=== PATIENT | female | born 1960 | race Caucasian/White ===

== ENCOUNTER 2023-01-09 14:35 | Outpatient (CLI) | payer OTHER, SELFPAY ==
--- NOTE | 2023-01-09 15:00 | CRLHL7_ITS ---
For Patients: As a result of the Cures Act, medical imaging exams and procedure reports are released immediately into your electronic medical record. You may view this report before your referring provider. If you have questions, please contact your health care provider. DXA BONE MINERAL DENSITY STUDY, 01/09/2023 Reason for exam: Screening for osteoporosis. Current height (inches): 67.0 Weight (lbs.): 200.0 Menopause age: 51 Ethnicity: White 1. Have you had a previous hip or vertebral fracture? No. 2. Have you had any fractures during your adult life which did not result from significant trauma (e.g., auto accident)? No. 3. Did either of your parents have a hip fracture? No. 4. Do you smoke? No. 5. Have you ever taken Glucocorticoids? No. 6. Do you have rheumatoid arthritis? No. 7. Do you have secondary osteoporosis? No. 8. Do you drink 3 or more alcoholic drinks per day? No. 9. Are you being treated for osteoporosis? No. 10. Have you ever taken any of the following medications: Actonel, Evista, Fosamax, Miacalcin, Reclast, Boniva, Forteo, HRT (i.e., estrogen/hormone therapy), Protelos, Prolia, Vitamin D, Calcium, other ??? please specify. ANSWER: Yes; vitamin D, calcium. 11. Do you have any of the following medical conditions: Anorexia or bulimia, asthma or emphysema, end stage renal disease, hyperparathyroidism, any seizure disorders, cancer, inflammatory bowel diseases, hysterectomy, other ??? please specify. ANSWER: Yes; hysterectomy. 12. What was your maximum height (inches)? 68. 13. Do you perform weightbearing exercise regularly? No. 14. Do you regularly consume dairy products? No. 15. Do you drink caffeinated beverages? Yes. 16. At what age did your period start? 13. 17. Are you premenopausal? No. 18. How many full-term pregnancies have you had? 3. 19. Have you ever missed your period for more than 6 months in a row (not including or menopause)? No. TECHNIQUE: Bone mineral density study was performed using the [employer]. FINDINGS: The results of the study expressed as bone mineral density (BMD) are as follows: Lumbar Spine L1 to L3 BMD: 0.974 g/cm2. T-score: -0.4. Z-score: 1.1. Neck Left: BMD: 0.748 g/cm2. T-score: -0.9. Z-score: 0.4. Right: BMD: 0.748 g/cm2. T-score: -0.9. Z-score: 0.4. Total Left: BMD: 0.980 g/cm2. T-score: 0.3. Z-score: 1.3. Right: BMD: 0.966 g/cm2. T-score: 0.2. Z-score: 1.2. IMPRESSION: Normal bone density. AALN YOUSSEF M.D. Diagnostic Radiologist [email or web address] Transcribed: 11:[address]/Dictated by: Alan Youssef MD @ 01/10/2023 8:25:00 AM (Electronically Signed)
== END 2023-01-09 14:36 | disposition home or self-care (01) ==
PROVIDERS: PCP Family Medicine; Visit Provider Family Medicine
DX: Z13.820 Encounter for screening for osteoporosis (principal)
CPT/HCPCS: 77080

== ENCOUNTER 2024-10-09 12:42 | Outpatient (CLI) | payer OTHER, SELFPAY ==
--- OUTSIDE RECORDS SUMMARY | 2023-12-30 11:29 | XMS_ITS | Continuity of Care Document ---
Author Organization [facility] Address [address] [address] [place] [address] Phone Care Team Providers Care Airplane Tube Builder Name Role Phone Tu De Santiago MD Unavailable Unavailable Allergies, Adverse Reactions, Alerts Substance Reaction Status Criticality No Known Allergies Active No Inform ation Medications Medication Instructions Dosage Effective Dates (start - stop) Status Comments amitriptyline 25 mg tablet take 1 tablet by oral route every day at bedtime 25 MG - Active atorvastatin 20 mg tablet take 1 tablet by oral route every day 20 MG - Active cephalexin 500 mg capsule take 1 capsule by oral route every 6 hours 500 MG - Active gabapentin 600 mg tablet take 1.5 tablet by oral route 2 times every day 900 MG - Active omeprazole 20 mg tablet,delayed release take 1 tablet by oral route every day 1 tablet - Active phentermine 15 mg capsule take 1 capsule by oral route every day before breakfast 15 MG - Active ropinirole 2 mg tablet take 1 tablet by oral route 3 times every day 2 MG - Active Procedures Procedure Date Offic/outpt E&m New Mod-hi Routine Serum Collection Advance Directives Directive Yes / No Effective Date File Name No Information Encounters Encounter Description Practice Location Reason(s) For Visit Diagnoses Date Provider Providers Copied on Encounter [facility], [address] [address], [place], [id number], [place] tel:[phone] [facility] No Information 4 Jonnathan Mae. [address] [facility] [facility], [place], [place], [id number], [place]. tel:[phone] Offic/outpt E&m [facility], [address] [address], [place], [place], [id number], tel:[phone] [facility] Symptoms or Concerns (chief complaint) Other dysphagiaAbdomin al pain, unspecified abdominal locationAbnormal CT scanConstipation , unspecified constipation typeDietary counseling and surveillance 4 Jonnathan Mae. [address] [facility], [facility] [address], [place], [place], [id number], [place]. tel:[phone] Referring Provider: Serina Angela [facility], [address] [place] [address], [address]. tel:[phone] [facility], [address] [address], [place], [place], [id number], [place] tel:[phone] No Information No Information Referring Provider: Serina Angela [facility], [address] [place] [address], [facility]. tel:[phone] Family History Family Member Type Diagnosis Age At Onset Son Problem (finding) Alcoholism Mother Problem (finding) Asthma Son Problem (finding) Cancer, skin Father Problem (finding) Colon polyps Mother Problem (finding) Cancer Son Problem (finding) GERD Son Problem (finding) Melanoma Father Problem (finding) Cancer, skin Father Problem (finding) GERD Father Problem (finding) Melanoma Son Problem (finding) Thyroid disorder Mother Problem (finding) Cancer, lung Immunizations Vaccine Date Status Comments SARS-COV-2 (COVID-19) vaccin e, mRNA, spike protein, LNP, preservative free, 100 mcg/0.5mL dose or 50 mcg/0.25mL dose administered Note: [facility] bi -directional interface ; Source: Other Registry tetanus and diphtheria toxoi ds, adsorbed, preservative free, for adult use (5 Lf of tetanus toxoid and 2 Lf of diphtheria toxoid) administered Note: [employer] bi-direct ional interface ; Source: Other Registry Influenza, seasonal, injectable administe red Note: [facility] bi- directional interface ; Source: Other Registry tetanus toxoid, reduced diphtheria toxoid, and acellular pertussis vaccine, adsorbed administered Note: [employer] b i-directional interface ; Source: Other Registry diphtheria, tetanus toxoids and acellular pertussis vaccine administered Note: [facility] b i-directional interface ; Source: Other Registry Payers Payer name Insurance type Covered republican ID Authoriza tion(s) No Information Social History Type Description Quantity Date Captured Comments Sex Female Smoking Status No Information Chief Complaint And Reason For Visit No Information Reason For Referral Reason For Referral No Information Plan Of Treatment Date Type Action Status Goal Lifestyle education regardin g diet completed Referral Ordered: Video And Clinical Swallow With Speech Pathologist, Treatment As Indicated Appointment date/timeframe: 10/08/2023 ordered Referral Ordered: Xray Esophagus (Esophagram, Barium Swallow Study) Appointment date/timeframe: 10/08/2023 ordered Referral Ordered: CT Abdomen And Pelvis WITH Contrast Appointment date/timeframe: 10/08/2023 ordered Referral Ordered: EGD Appointment date/timeframe: First Available ordered History Of Present Illness Encounter Date Complaint History Of Prese nt Illness GI Symptoms or Concerns This is a 63-year-old female with a past medical history of hyperlipidemia on atorvastatin, on tamoxifen, on amitriptyline for neuropathy, BMI of 32 on phentermine, cholecystectomy and hysterectomy who presents for right-sided abdominal pain and findings of CT scan from late July 2023. She is being sent to us for consultation for these symptoms by BRENNAN Johnson. Patient describes that for the last several months she has had right-sided abdominal pain in the mid quadrant. This has also coincided with irregular bowel movements having 1 bowel movement every other day that is significantly less from baseline. Patient will also note some pill dysphagia but no significant dysphagia with liquids or solids. Patient denies any nausea or vomiting and no overt weight loss. Due to symptoms patient went to urgency room where she had a CBC and CMP that were essentially unremarkable in late August 10, 2023. Patient also had a CT abdomen pelvis with IV contrast that showed some hazy stranding and some prominent lymph nodes but sub 1 centimeter. Patient notes that she has had an EGD February of 2022 and July of 2022 that showed an esophageal cyst. We do not have these records. Patient describes that she had her last colonoscopy 1-2 years ago that was entirely negative with no polyps. Patient has no family history of colon cancer. From a social standpoint patient does not smoke or drink any alcohol. 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 Functional Status Date Functional Assessmen t No Information Instructions Date Instruction Additional Infor candelaria --The findings on CT scan of the prominent lymph nodes and hazy mesentery are very nonspecific and likely do not warrant anything concerning feel we will recheck the status of these findings with a CT scan in about 2 months' time from today-- today we will check B12 levels due to your neuropathy as well as LDH, that can be a marker of lymphoma in the setting of the hazy mesentery though unlikely to be positive though-- you do note some issues with swallowing pills therefore we will do a swallowing study to evaluate this with x-rays-- we will order an upper endoscopy to evaluate this cyst that they have seen on the upper endoscopy as well as some of the symptoms that you have on the left side of your abdomen-- in the meantime you will work on constipation as I think that is the most likely cause of your abdominal symptoms-- lifestyle things that you can do include a substantial breakfast in the morning, hot beverage in the morning exercise in the morning these will stimulate bowel motions in the morning-- can continue MiraLax once a day and increase it to twice a day and see how things go for 7-14 days if no effect can go back to MiraLax once a day-- if MiraLax twice a day is not help symptoms can add 1 senna tablet at night 7.6 milligrams tab [id number]-oglohwv. Try for 7-14 days and if no effect increase to 2 pills of senna tablets at night-- safe to do a lidocaine patch over the area of abdominal pain as well. This is something obtained [id number]-lds-[id number].-- We will set a follow up in 3 months to see how things are going after the above. Related to Other dysphagia Lifestyle education regarding di et Related to Dietary counseling and surveillance Assessments Type Assessment Date No Information Patient Care Teams Name Effective Dates (start - stop) Status Members No Information
--- OUTSIDE RECORDS SUMMARY | 2023-12-30 11:29 | XMS_ITS | Continuity of Care Document ---
Author Organization [facility] Address [address] [address] [place] [address] Phone Care Team Providers Care Imagery Intelligence Name Role Phone Tu De Santiago MD [...] Diagnoses Date Provider Providers Copied on Encounter [facility], [address] [address], [place], [id number], [place] tel:[phone] [facility] No Information 4 Jonnathan Mae. [address] [facility], [facility] [address], [place], [place], [id number], [place]. tel:[phone] Offic/outpt E&m [facility], [address] [address], [place], [place], [id number], tel:[phone] [facility] GI Symptoms or Concerns (chief complaint) Other dysphagiaAbdomin al pain, unspecified abdominal locationAbnormal CT scanConstipation , unspecified constipation typeDietary counseling and surveillance 4 Jonnathan Mae. [address] [facility], [facility] [address], [place], [place], [id number], [place]. tel:[phone] Referring Provider: Serina Angela [facility], [address] [place] [address], [address]. tel:[phone] [facility], [address] [address], [place], [place], [id number], [place] tel:[phone] No Information No Information Referring Provider: Serina Angela [facility], [address] [place] [address], [facility]. tel:[phone] Family History Family Member Type Diagnosis Age [...] dose or 50 mcg/0.25mL dose administered Note: [facility] bi -directional interface ; Source: Other Registry tetanus and diphtheria toxoi ds, adsorbed, preservative free, for adult use (5 Lf of tetanus toxoid and 2 Lf of diphtheria toxoid) administered Note: [employer] bi-direct ional interface ; Source: Other Registry Influenza, seasonal, injectable administe red Note: [facility] bi- directional interface ; Source: Other Registry tetanus toxoid, reduced diphtheria toxoid, and acellular pertussis vaccine, adsorbed administered Note: [employer] b i-directional interface ; Source: Other Registry diphtheria, tetanus toxoids and acellular pertussis vaccine administered Note: [employer] b i-directional interface ; Source: Other Registry [...] senna tablet at night 7.6 milligrams tab jtuq-tci-iezovpl. Try for 7-14 days and if no effect increase to 2 pills of senna tablets at night-- safe to do a lidocaine patch over the area of abdominal pain as well. This is something obtained [id number].-- We will set a follow up in 3 months to see how things are going after the above. Related to Other dysphagia Lifestyle education regarding di et Related to Dietary counseling and surveillance Assessments Type Assessment Date No Information Patient Care Teams Name Effective Dates (start - stop) Status Members No Information
--- OUTSIDE RECORDS SUMMARY | 2024-09-03 09:44 | XMS_ITS | Encounter Summary ---
Author Organization [facility] Address [address] [place] [address] Care Team Providers Care Web Content Producer Name Role Phone Serina Angela APRN Primary Care Provider Encounter Details Date Type Department Care Team (Latest Contact Info) Description 09/03/2024 9:44 AM CDT Hospital Encounter [facility] [address] [place] [address] Discharge Disposition: Home or Self Care Social History Tobacco Use Types Packs/Day Years Used Date Smoking Tobacco: Former Smokeless Tobacco: Never Alcohol Use Standard Drinks/Week Comments Not Currently 10 (1 standard drink = 0.6 oz pu re alcohol) B1300 Health Literacy Answer Date Recor ded How often do you need to hav e someone help you when you read instructions, pamphlets, or other written material from your doctor or pharmacy? Never 08/11/2024 [facility] Utilities Answer Date Recorded In the past 12 months has [facility] [employer], oil, or water [employer] threatened to shut off services in your home? No 08/11/2024 Humiliation, Afraid, Rape, and Kick questionnair e Answer Date Recorded Within the last year, have y ou been afraid of your partner or ex-partner? No 08/11/2024 Within the last year, have y ou been humiliated or emotionally abused in other ways by your partner or ex-partner? No Within the last year, have y ou been kicked, hit, slapped, or otherwise physically hurt by your partner or ex-partner? No 08/11/2024 Within the last year, have y ou been raped or forced to have any kind of sexual activity by your partner or ex-partner? No 08/11/2024 Social Connection and Isolat ion Panel [NHANES] Answer Date Recorded In a typical week, how many times do you talk on the phone with family, friends, or neighbors? More than three times a week 08/11/2024 How often do you get togethe r with friends or relatives? More than three times a week 08/11/2024 How often do you attend chur or rastafarian services? Never 08/11/2024 Do you belong to any clubs o r organizations such as confucianism groups, unions, fraternal or athletic groups, or school groups? No 08/11/2024 How often do you attend meet ings of the clubs or organizations you belong to? Never 08/11/2024 Are you , , di vorced, , never , or living with a partner? 08/11/2024 AUDIT-C Answer Date Recorded Q1: How often do you have a drink containing alcohol? Patient declined 08/11/2024 Q2: How many drinks containi ng alcohol do you have on a typical day when you are drinking? Patient does not drink Q3: How often do you have si x or more drinks on one occasion? Never 08/11/2024 Overall Financial Resource Strain (CARDIA) Answe r Date Recorded How hard is it for you to pa y for the very basics like food, housing, medical care, and heating? Not hard at all 08/11/2024 PHQ-2 Answer Date Recorded PHQ-9 Total Score 1 01/17/2024 [facility] - Occupational Stress Questionnaire Answer Date Recorded Do you feel stress - tense, restless, nervous, or anxious, or unable to sleep at night because your mind is troubled all the time - these days? To some extent 08/11/2024 Exercise Vital Sign Answer Date Recorde d On average, how many days pe r week do you engage in moderate to strenuous exercise (like a brisk walk)? 0 days 08/11/2024 On average, how many minutes do you engage in exercise at this level? 0 min 08/11/2024 Hunger Vital Sign Answer Date Recorded Within the past 12 months, y ou worried that your food would run out before you got the money to buy more. Never true 08/12/19 25 Within the past 12 months, t he food you bought just didn't last and you didn't have money to get more. Never true 08/11/2024 PRAPARE - Transportation Answer Date Re corded In the past 12 months, has l ack of transportation kept you from medical appointments or from getting medications? No 07/22 In the past 12 months, has l ack of transportation kept you from meetings, work, or from getting things needed for daily living? No 08/11/2024 Housing Stability Vital Sign Answer Jose e Recorded In the last 12 months, was t here a time when you were not able to pay the mortgage or rent on time? No 08/05/2023 In the last 12 months, how many places have you lived? 2 08/05/2023 In the last 12 months, was t here a time when you did not have a steady place to sleep or slept in a intermediate (including now)? No 08/05/2023 Housing Stability Vital Sign Answer Jose e Recorded In the last 12 months, was t here a time when you were not able to pay the mortgage or rent on time? No 08/11/2024 Number of Times Moved in the Last Year Not on fi le 08/11/2024 At any time in the past 12 m [facility], were you homeless or living in a intermediate (including now)? No 08/11/2024 Interpersonal Safety Questionnaire Answer Date Recorded How often does anyone, yancy roa family and friends, physically hurt you? Never 08/11/2024 How often does anyone, yancy roa family and friends, insult or talk down to you? Never 08/11/2024 How often does anyone, yancy roa family and friends, threaten you with harm? Never 08/11/2024 How often does anyone, yancy roa family and friends, threaten you with harm? Never 08/11/2024 Comments No Sex and Gender Information Value Date Recorded Sex Assigned at Not on file Legal Sex Female 7:51 PM CDT Gender Identity Not on file Sexual Orientation Not on file documented as of this encounter Medications at Time of Discharge amitriptyline (ELAVIL) 25 MG tabletIndications :Restless leg syndrome Take 1 tablet (25 mg total) by mouth every night On file. 90 tablet 3 08/11/2024 08/11/2025 gabapentin (NEURONTIN) 600 MG tabletIndications :Neuropathy TAKE 1 & 1/2 (ONE & ONE-HALF) TABLETS BY MOUTH TWICE DAILY FOR BACK PAIN/NEUROPAT HY 270 tablet 1 08/11/2024 rOPINIRole XL (REQUIP XL) 4 MG 24 hr tabletIndications :Restless Leg Syndrome Take 1 tablet (4 mg total) by mouth every night On file. 90 tablet 3 08/11/2024 08/11/2025 documented as of this encounter Plan of Treatment Not on file documented as of this encounter Procedures Procedure Name Priority Date/Time Associated Diagnosis Comments XR LUMBAR SPINE 2-3 VIEWS Routine 09/03/2024 10:05 AM CDT Right hip pain documented in this encounter Results * X-ray lumbar spine 2-3 views (Routine) (09/03/2024 10:05 AM CDT) Anatomical Region Laterality Modality Spine, L-spine Computed Radiogr aphy Impressions 09/03/2024 10:07 AM CDT XR LUMBAR SPINE 2-3 VIEWS The distal-most aspect of the coccyx is not completely included. No fracture identified. No malalignment. No suspicious lesion. Bone density overall appears diffusely decreased. There are 6 kfc-teg-dwenxsw lumbar-type vertebral bodies. There is mild disc space narrowing with endplate spurring from L1-2 through L6- S1. There are metallic clips in the right upper abdomen. Narrative 09/03/2024 10:07 AM CDT INDICATION: Tailbone pain COMPARISON: None available Procedure Note Alma Medellin MD - 09/03/2024 INDICATION: Tailbone pain COMPARISON: None available IMPRESSION: XR LUMBAR SPINE 2-3 VIEWS The distal-most aspect of the coccyx is not completely included. Nofracture identified. No malalignment. No suspicious lesion. Bonedensity overall appears diffusely decreased. There are 6 mqx-guc-jdlaezrmanqkr-type vertebral bodies. There is mild disc space narrowing withendplate spurring from L1-2 through L6-S1. There are metallic clips inthe right upper abdomen. Serina Angela APRN IMG XR PROCEDURES Delaney l Result documented in this encounter Visit Diagnoses Not on filedocumented in this encounter Care Teams Web Content Producer Relationship Specialty Start Date End Date Serina Angela, FLOORMAN [address] [place] [id number] PCP - General 02/07/23 documented as of this encounter
--- OUTSIDE RECORDS SUMMARY | 2024-09-03 09:44 | XMS_ITS | Encounter Summary ---
Author Organization [facility] er Address [address] [place] [address] Care Team Providers Care Lard Refiner Name Role Phone Serina Angela APRN Primary Care Provider Encounter Details Date Type Department Care Team (Latest Contact Info) Description 09/03/2024 9:44 AM CDT Hospital Encounter [facility] [address] [place] [address] Discharge Disposition: Home or Self Care Social [...] from your doctor or pharmacy? Never 08/11/2024 [facility] Utilities Answer Date Recorded In the past 12 months has [facility] [employer], oil, or water [employer] threatened to shut off services in your [...] How often do you attend chur or presybeterian services? Never 08/11/2024 Do you belong to any clubs o r organizations such as baptist groups, unions, fraternal or athletic groups, or [...] Date Recorded PHQ-9 Total Score 1 01/17/2024 [facility] of Occupat ional Health - Occupational [...] place to sleep or slept in a long term (including now)? No 08/05/2023 Housing Stability Vital Sign Answer Jose e Recorded In the last 12 months, was t here a time when you were not able to pay the mortgage or rent on time? No 08/11/2024 Number of Times Moved in the Last Year Not on fi le 08/11/2024 At any time in the past 12 m [facility], were you homeless or living in a long term (including now)? No 08/11/2024 Interpersonal Safety Questionnaire [...] overall appears diffusely decreased. There are 6 olq-eum-mhlmybd lumbar-type vertebral bodies. There is mild disc [...] overall appears diffusely decreased. There are 6 ecs-bpl-dgghrmrfnxkev-type vertebral bodies. There is mild disc space narrowing withendplate spurring from L1-2 through L6-S1. There are metallic clips inthe right upper abdomen. Serina Angela APRN IMG XR PROCEDURES Delaney l Result documented in this encounter Visit Diagnoses Not on filedocumented in this encounter Care Teams Lard Refiner Relationship Specialty Start Date End Date Serina Angela, PIPE STEM SAWYER [address] [place] [id number] PCP - General 02/07/23 documented as of this encounter
--- OUTSIDE RECORDS SUMMARY | 2024-09-03 09:45 | XMS_ITS | Encounter Summary ---
Author Organization [facility] er Address [address] [place] [address] Care Team Providers Care Sr. Operations Manager Name Role Phone Serina Angela APRN Primary Care Provider Encounter Details Date Type Department Care Team (Latest Contact Info) Description 09/03/2024 9:45 AM CDT - 09/03/2024 11:59 PM CDT Hospital Encounter [facility] [address] [place] [address] Discharge Disposition: Home or Self Care Social [...] Recorded In the past 12 months has [employer], oil, or water [employer] threatened to shut off services in your [...] 08/11/2024 How often do you attend chur ch or restoration services? Never 08/11/2024 Do you belong to any clubs o r organizations such as taoism groups, unions, fraternal or athletic groups, or [...] Date Recorded PHQ-9 Total Score 1 01/17/2024 [facility] of Occupat ional Health - Occupational Stress [...] place to sleep or slept in a fpc (including now)? No 08/05/2023 Housing Stability Vital Sign Answer Jose e Recorded In the last 12 months, was t here a time when you were not able to pay the mortgage or rent on time? No 08/11/2024 Number of Times Moved in the Last Year Not on fi le 08/11/2024 At any time in the past 12 m [facility], were you homeless or living in a fpc (including now)? No 08/11/2024 Interpersonal Safety Questionnaire [...] Name Priority Date/Time Associated Diagnosis Comments XR HIP 2-3 VIEWS RIGHT WITH PELVIS Today 09/03/2024 10:05 AM CDT Pain, coccyx documented in this encounter Results * X-ray hip 2-3 views right with pelvis (09/03/2024 10:05 AM CDT) Anatomical Region Laterality Modality Lower Extremities, Hip, Pelvis Right C omputed Radiography Impressions 09/03/2024 10:05 AM CDT XR HIP 2-3 VIEWS RIGHT WITH PELVIS There is mild narrowing with spurring at the right hip joint and minimal narrowing with spurring at the left hip joint. There is mild spurring bilaterally at the inferior sacroiliac joints. Endplate spurring is partially demonstrated in the lower lumbar spine. No dislocation or acute fracture. No suspicious lytic or blastic lesion. Narrative 09/03/2024 10:05 AM CDT INDICATION: Right hip pain COMPARISON: None available Procedure Note Alma Medellin MD - 09/03/2024 INDICATION: Right hip pain COMPARISON: None available IMPRESSION: XR HIP 2-3 VIEWS RIGHT WITH PELVIS There is mild narrowing with spurring at the right hip joint and minimalnarrowing with spurring at the left hip joint. There is mild spurringbilaterally at the inferior sacroiliac joints. Endplate spurring ispartially demonstrated in the lower lumbar spine. No dislocation or acutefracture. No suspicious lytic or blastic lesion. Serina Angela APRN IMG XR PROCEDURES Delaney l Result documented in this encounter Visit Diagnoses Not on filedocumented in this encounter Care Teams Sr. Operations Manager Relationship Specialty Start Date End Date Serina Angela, [employer] [address] [place] [id number] PCP - General 02/07/23 documented as of this encounter
--- OUTSIDE RECORDS SUMMARY | 2024-09-03 09:45 | XMS_ITS | Encounter Summary ---
Author Organization [facility] er Address [address] [place] [address] Care Team Providers Care Energy Crop Farmer Name Role Phone Serina Angela APRN Primary Care Provider Encounter Details Date Type Department Care Team (Latest Contact Info) Description 09/03/2024 9:45 AM CDT - 09/03/2024 11:59 PM CDT Hospital Encounter [facility] [address] [place] [address] Discharge Disposition: Home or Self Care Social [...] from your doctor or pharmacy? Never 08/11/2024 [facility] Utilities Answer Date Recorded In the past 12 months has [employer], oil, or water [employer] threatened to shut off services in your [...] often do you attend chur ch or nondenominational services? Never 08/11/2024 Do you belong to any clubs o r organizations such as adventism groups, unions, fraternal or athletic groups, or [...] Date Recorded PHQ-9 Total Score 1 01/17/2024 [facility] of Occupat ional Health - Occupational Stress [...] place to sleep or slept in a retirement (including now)? No 08/05/2023 Housing Stability Vital [...] were you homeless or living in a retirement (including now)? No 08/11/2024 Interpersonal Safety Questionnaire [...] on filedocumented in this encounter Care Teams Energy Crop Farmer Relationship Specialty Start Date End Date Serina Angela, FERMENTING CELLARS RECEIVER [address] [place] [id number] PCP - General 02/07/23 documented as of this encounter
--- OUTSIDE RECORDS SUMMARY | 2024-09-25 10:20 | XMS_ITS | Encounter Summary ---
Author Organization [facility] er Address [address] [place] [address] Care Team Providers Care Score Caller Name Role Phone Serina Angela APRN Primary Care Provider Reason for Referral * Consultation (Routine) - Authorized Specialty Diagnoses / Procedures Referred By David hickey Referred To Contact Diagnoses Ingrown toenail of both feet Serina Angela APRN [address] [place] [address] Phone: tel: fax: [address] [address] Phone: tel: Referral ID Status Reason Start Date Expiration Date V isits Requested Visits Authorized [id number] Authorized 09/25/2024 09/26/2025 1 1 * Consultation (Routine) - Authorized Specialty Diagnoses / Procedures Referred By Contac t Referred To Contact Diagnoses Right hip pain Serina Angela APRN [address] [place] [address] Phone: tel: fax: [address] [address] Phone: tel: fax: Referral ID Status Reason Start Date Expiration Date V isits Requested Visits Authorized [id number] Authorized 09/25/2024 09/26/2025 1 1 Reason for Visit * Reason Comments Hip Pain Right hip pain Encounter Details Date Type Department Care Team (Late st Contact Info) Description 09/25/2024 10:20 AM CDT Office Visit [place] [address] [place] [address] Serina Angela APRN [address] [place] [address] Ingrown toenail of both feet (Primary Dx); Right hip pain Social History Tobacco Use Types Packs/Day Years [...] from your doctor or pharmacy? Never 08/11/2024 [facility] Utilities Answer Date Recorded In the past 12 months has [facility] [employer], gas, oil, or water [employer] threatened to shut off services in your [...] often do you attend chur ch or hoahaoism services? Never 08/11/2024 Do you belong to any clubs o r organizations such as rastafarian groups, unions, fraternal or athletic groups, or [...] PHQ-2 Answer Date Recorded PHQ-9 Total Score 0 09/24/2024 [facility] of Occupat ional Health - Occupational Stress [...] place to sleep or slept in a half-way (including now)? No 08/05/2023 Housing Stability Vital Sign Answer Jose e Recorded In the last 12 months, was t here a time when you were not able to pay the mortgage or rent on time? No 08/11/2024 Number of Times Moved in the Last Year Not on fi le 08/11/2024 At any time in the past 12 m [facility], were you homeless or living in a half-way (including now)? No 08/11/2024 Interpersonal Safety Questionnaire [...] on file documented as of this encounter Last Filed Vital Signs Vital Sign Reading Time Taken Comments Blood Pressure 122/72 09/25/2024 10:20 AM CDT Pulse 67 09/25/2024 10:20 AM CDT Temperature 36.6 C (97.9 F) 09/25/2024 10:20 AM CDT Respiratory Rate 18 09/25/2024 10:20 AM CDT Oxygen Saturation 94% 09/25/2024 10:20 AM CDT Inhaled Oxygen Concentration - - Weight 89 kg (196 lb 4.8 oz) 09/25/2024 10:20 AM CDT Height 170.8 cm (5' 7.24) 09/25/2024 10:20 AM Leandro TOWNSEND Body Mass Index 30.52 09/25/2024 10:20 AM CDT documented in this encounter Patient Instructions * Patient Instructions* Serina Angela APRN - 09/25/2024 10:20 AM CDT Please call: [facility]: for orthopedics & Podiatry documented in this encounter Progress Notes * Serina Angela APRN - 09/25/2024 10:20 AM CDT Subjective Patient ID: Anamaria Contreras is a 64 y.o. female. Chief Complaint Patient presents with Hip Pain Right hip pain Anamaria presents today with constant pain in her right hip. She feels like something is in the right hip. X-rays done with no abnormalities except for some spurring. Anamaria would hudson to start walking but can't because of the pain. Anamaria also states she has had ingrown toenails for years, she would like a referral to podiatry to have these taken care of. A provider reviewed the following portions of the patient's chart in this encounter and updated as appropriate: Tobacco Allergies Meds Problems Med Hx Surg Hx Fam Hx Review of Systems Constitutional: Negative. Negative for fatigue and fever. HENT: Negative. Negative for congestion, rhinorrhea and sore throat. Eyes: Negative. Respiratory: Negative. Negative for cough, chest tightness, shortness of breath and wheezing. Cardiovascular: Negative. Negative for chest pain, palpitations and leg swelling. Gastrointestinal: Negative. Negative for abdominal pain, constipation, diarrhea, nausea and vomiting. Endocrine: Negative. Genitourinary: Negative. Negative for dysuria, frequency and urgency. Musculoskeletal: Positive for arthralgias (right hip). Negative for gait problem and joint swelling. Skin: Negative. Ingrown toenails on both feet Allergic/Immunologic: Negative. Neurological: Negative. Negative for dizziness, speech difficulty, numbness and headaches. Hematological: Negative. Psychiatric/Behavioral: Negative. Negative for agitation, behavioral problems, confusion, self-injury, sleep disturbance and suicidal ideas. The patient is not nervous/anxious. Objective Physical Exam Constitutional: Appearance: Normal appearance. She is well-developed and well-groomed. Cardiovascular: Rate and Rhythm: Normal rate and regular rhythm. Pulses: Normal pulses. Heart sounds: Normal heart sounds. Pulmonary: Effort: Pulmonary effort is normal. Breath sounds: Normal breath sounds and air entry. Feet: Right foot: Toenail Condition: Right toenails are ingrown. Left foot: Toenail Condition: Left toenails are ingrown. Comments: Ingrown toenails found on each foot Neurological: General: No focal deficit present. Mental Status: She is alert and oriented to person, place, and time. Psychiatric: Mood and Affect: Mood normal. Behavior: Behavior normal. Behavior is cooperative. Thought Content: Thought content normal. Judgment: Judgment normal. Assessment/Plan Problem List Items Addressed This Visit Right hip pain Referral placed to [facility] to orthopedics Relevant Orders Ambulatory External Referral [facility]; [place], [place]; Orthopedics Ingrown toenail of both feet - Primary Referral placed to [facility] to podiatry Relevant Orders Ambulatory External Referral [facility]; [place], [place]; Podiatry * Reema Fleming - 09/25/2024 10:20 AM CDT Referral faxed to [facility]; fax [phone]. documented in this encounter Miscellaneous Notes * Assessment & Plan Note - Serina Angela APRN - 09/25/2024 11:39 AM CDT Associated Problem(s): Right hip pain Referral placed to [facility] to orthopedics * Assessment & Plan Note - Serina Angela APRN - 09/25/2024 11:39 AM CDT Associated Problem(s): Ingrown toenail of both feet Referral placed to [facility] to podiatry documented in this encounter Plan of Treatment Scheduled Referrals Name Type Priority Associated Diagnoses Order Schedule Ambulatory External Referral [place], [place]; Orthopedics Outpatient Referral Routine Right hip pain Ordered: 09/25/2024 Ambulatory External Referral [place], [place]; Podiatry Outpatient Referral Routine Ingrown toenail of both feet Ordered: 09/25/2024 documented as of this encounter Visit Diagnoses Diagnosis Ingrown toenail of both feet- Primary Right hip pain Pain in joint, pelvic region and thigh documented in this encounter Care Teams Score Caller Relationship Specialty Start Date End Date Serina Angela APRN [address] [place] [phone] PCP - General 02/07/23 documented as of this encounter
--- OUTSIDE RECORDS SUMMARY | 2024-09-25 10:20 | XMS_ITS | Encounter Summary ---
Author Organization [facility] er Address [address] [place] [address] Care Team Providers Care Machinery Mechanic Name Role Phone Serina Angela APRN Primary Care Provider Reason for Referral * Consultation (Routine) - Authorized Specialty Diagnoses / Procedures Referred By David hickey Referred To Contact Diagnoses Ingrown toenail of both feet Serina Angela APRN [address] [place] [address] Phone: tel: fax: [address] [address] Phone: tel: Referral ID Status Reason Start Date Expiration Date V isits Requested Visits Authorized [id number] Authorized 09/25/2024 09/26/2025 1 1 * Consultation (Routine) - Authorized Specialty Diagnoses / Procedures Referred By Contac t Referred To Contact Diagnoses Right hip pain Serina Angela APRN [address] [place] [address] Phone: tel: fax: [address] [address] Phone: tel: fax: Referral ID Status Reason Start Date Expiration Date V isits Requested Visits Authorized [id number] Authorized 09/25/2024 09/26/2025 1 1 Reason for Visit * Reason Comments Hip Pain Right hip pain Encounter Details Date Type Department Care Team (Late st Contact Info) Description 09/25/2024 10:20 AM CDT Office Visit [place] [address] [place] [address] Serina Angela APRN [address] [place] [address] Ingrown toenail of both feet (Primary Dx); [...] from your doctor or pharmacy? Never 08/11/2024 [facility] Utilities Answer Date Recorded In the past 12 months has [facility] [employer], gas, oil, or water [employer] threatened to shut off services in your [...] often do you attend chur ch or denominational services? Never 08/11/2024 Do you belong to any clubs o r organizations such as caodaism groups, unions, fraternal or athletic groups, or [...] Date Recorded PHQ-9 Total Score 0 09/24/[address] [facility] [place] of Occupat ional Health - Occupational Stress [...] place to sleep or slept in a mcc (including now)? No 08/05/2023 Housing Stability Vital Sign Answer Jose e Recorded In the last 12 months, was t here a time when you were not able to pay the mortgage or rent on time? No 08/11/2024 Number of Times Moved in the Last Year Not on fi le 08/11/2024 At any time in the past 12 m [facility], were you homeless or living in a mcc (including now)? No 08/11/2024 Interpersonal Safety Questionnaire [...] - 09/25/2024 10:20 AM CDT Please call: [facility]: for orthopedics & Podiatry documented in this [...] Visit Right hip pain Referral placed to [facility] to orthopedics Relevant Orders Ambulatory External Referral [facility]; [place], [place]; Orthopedics Ingrown toenail of both feet - Primary Referral placed to [facility] to podiatry Relevant Orders Ambulatory External Referral [facility]; [place], [place]; Podiatry * Reema Fleming - 09/25/2024 10:20 AM CDT Referral faxed to [facility]; fax [phone]. documented in this encounter Miscellaneous Notes * Assessment & Plan Note - Serina Angela APRN - 09/25/2024 11:39 AM CDT Associated Problem(s): Right hip pain Referral placed to [facility] to orthopedics * Assessment & Plan Note - Serina Angela APRN - 09/25/2024 11:39 AM CDT Associated Problem(s): Ingrown toenail of both feet Referral placed to [facility] to podiatry documented in this encounter Plan of Treatment Scheduled Referrals Name Type Priority Associated Diagnoses Order Schedule Ambulatory External Referral [place], [place]; Orthopedics Outpatient Referral Routine Right hip pain Ordered: 09/25/2024 Ambulatory External Referral [place], [place]; Podiatry Outpatient Referral Routine Ingrown toenail of both feet Ordered: 09/25/2024 documented as of this encounter Visit Diagnoses Diagnosis Ingrown toenail of both feet- Primary Right hip pain Pain in joint, pelvic region and thigh documented in this encounter Care Teams Machinery Mechanic Relationship Specialty Start Date End Date Serina Angela APRN [address] [place] [id number] PCP - General 02/07/23 documented as of this encounter
--- OUTSIDE RECORDS SUMMARY | 2024-10-09 12:50 | XMS_ITS | Clinical Summary ---
Author Organization [facility] Address [address] [place] [id number] Care Team Providers Care Business Process Expert Name Role Phone Sonya Guevara APRN, C.N.P., D.N.P. Primary Ca re Provider Unavailable Source Comments Patient records contain information from all sites at [facility]. For routine questions regarding patient records, call [phone] during business hours, M-F 8:00 AM - 5:00 PM Central Time. Record requests for emergency care only can be directed to [phone] at any time.[facility] Allergies No known active allergies Medications * This document contains information received from the source organization and may not represent a complete record from that organization. amitriptyline (ELAVIL) 25 mg tablet Take 25 mg by mouth at bedtime. 12/06/2021 Active gabapentin (NEURONTIN) 600 mg tablet Take one and 1/2 tabs twice a day for back pain/neuropa thy 11/20/2021 Active atorvastatin (LIPITOR) 20 mg tablet Take 20 mg by mouth daily. 01/03/2021 Active rOPINIRole (Requip) 2 mg tablet Take 2 mg by mouth at bedtime. Active cyanocobalamin, vitamin B-12, 5,000 mcg tablet, sublingual Place 1 tablet under the tongue daily. 12/14/2011 Active estradioL (Estrace) 0.1 mg/g (0.01%) vaginal cream Insert 2 g into the vagina at bedtime. Active LORazepam (Ativan) 0.5 mg tablet Take 1-2 tablets (0.5-1 mg total) by mouth 30 minutes prior to procedure. 2 tablet 11/29/2023 Active Active Problems Problem Noted Date Diagnosed Date Discharge Nipple 02/09/2024 Lump In Right Breast Overlapping Quadrants 02/08 Immunizations Immunization Administration Dates Next Due Influenza, Unspecified 03/22/2012 Social History Tobacco Use Types Packs/Day Years Used Date Smoking Tobacco: Former Passive Smoke Exposure: Past Tobacco Cessation:Counseling Given: Not Answered Alcohol Use Standard Drinks/Week Comments Yes 14 (1 standard drink = 0.6 oz pu re alcohol) [facility] Utilities Answer Date Recorded In the past 12 months has th e [employer], oil, or water [employer] threatened to shut off services in your home? No 11/01/2023 Exercise Vital Sign Answer Date Recorde d On average, how many days pe r week do you engage in moderate to strenuous exercise (like a brisk walk)? 3 days 11/01/2023 On average, how many minutes do you engage in exercise at this level? 30 min 11/01/2023 Hunger Vital Sign Answer Date Recorded Within the past 12 months, y ou worried that your food would run out before you got the money to buy more. Never true 11/01/19 Within the past 12 months, t he food you bought just didn't last and you didn't have money to get more. Never true 11/01/2023 PRAPARE - Transportation Answer Date Re corded In the past 12 months, has l ack of transportation kept you from medical appointments or from getting medications? No 10/20 In the past 12 months, has l ack of transportation kept you from meetings, work, or from getting things needed for daily living? No 11/01/2023 Nutrition Answer Date Recorded On average, how many serving s of fruits and vegetables do you eat per day (serving size is equal to 1 cup or approximately the size of a tennis ball)? 3-5 11/01/2023 Dental Answer Date Recorded Dental: Regular Dentist Yes 11/01/19 Employment Answer Date Recorded Employment status Employed and actively working without restrictions 11/01/2023 Housing Stability Answer Date Recorded What is your living situation today? I have a [facility] place to live 11/01/2023 Comments No Sex and Gender Information Value Date Recorded Sex Assigned at Female 11/01/2023 11:43 AM CDT Legal Sex Female 3:32 PM [employer] Gender Identity Not on file Sexual Orientation Straight 11/01/2023 11 :43 AM CDT Last Filed Vital Signs Vital Sign Reading Time Taken Comments Blood Pressure 131/84 03/24/2024 11:08 AM [facility] Pulse 74 03/24/2024 11:08 AM [facility] Temperature 36.4 C (97.5 F) 03/24/2024 11:08 AM [facility] Respiratory Rate 16 08/16/2023 2:09 PM CDT Oxygen Saturation 96% 08/16/2023 2:00 PM CDT Inhaled Oxygen Concentration - - Weight 89 kg (196 lb 3.2 oz) 03/24/2024 11:08 AM [facility] Height 169.3 cm (5' 6.65) 03/24/2024 11:08 AM [facility] Body Mass Index 31.05 03/24/2024 11:08 AM [facility] Plan of Treatment Health Maintenance Due Date Last Done Comments CT Colonography 1961 Cologuard 1961 FIT 1961 HIV Screening 1961 Hepatitis C Screening 1961 Pneumococcal vaccine (50+ years) (1 of 1 - PCV) 2011 Zoster Vaccines (1 of 2) 2011 COVID-19 Vaccine (2 - season) 2023 01/11/2021 Influenza Vaccine (#1) 2024 3, 03/22/2012, 02/15/2010 Depression Screening (Annual PHQ-2) 04/22/2024 Mammogram 09/04/2024 09/05/2023, 05/0 11/2023, 08/13/2023, Additional history exists Fasting Glucose for Diabetes Screening 08/15/2026 08/16/2023, 12/14/2021, 10/15/2012, Additional history exists Lipid (Cholesterol) Screening 08/06/2028 08/07/2023, 12/31/2022, 12/22/2021, Additional history exists DTaP,Tdap,and Td Vaccines (4 - Td or Tdap) 01/03/2030 01/04/2020, 10/04/2005, 04/10/2004 Colonoscopy 01/31/2031 01/31/2021 (Perf ormed elsewhere), 01/31/2021 Colorectal Cancer Screening 01/31/2031 IPV Vaccines Aged Out No longer eligi ble based on patient's age to complete this topic Medical Devices Implanted Type Area Set Up / Operator Device Identifier Shelf Expiration Date Model / Serial / Lot Breast Other Breast Other Right: Breast Procedures Procedure Name Priority Date/Time Associated Diagnosis Comments OUTSIDE MG MAMMOGRAM Routine 09/05/2023 9:10 AM CDT COMPREHENSIVE METABOLIC PANEL, S/P STAT 08/16/2023 12:45 PM CDT LIPID PANEL, S Routine 10/15/2012 10:17 AM CDT from Last 3 Months or Most Recently Relevant to Health Maintenance Results * MAMMOGRAM POST PROCEDURE RIGHT-Outside Mammogram (09/05/2023 9:10 AM CDT) Narrative [facility] - 10/22/2023 10:46 AM CDT This order has been created and auto-finalized to support the import of outside images. If available, original interpretation can be found on the Media Tab in Chart Review, in Document Viewer, as an image in QREADS or as an Addendum. If a re-interpretation or overread is required please follow defined workflow. us Provider Not In System IMG BI PROCEDURES Final R esult [facility]IM[facility] NA * (ABNORMAL) Comprehensive Metabolic Panel (08/16/2023 12:45 PM CDT) Potassium, P 4.0 3.6 - 5.2 mmol/L 08/16/2023 1:12 PM CDT CNFL Sodium, P 140 135 - 145 mmol/L 08/16/2023 1:12 PM CDT [facility] Chloride, P 103 98 - 107 mmol/L 08/16/2023 1:12 PM CDT [facility] Bicarbonate, P 26 22 - 29 mmol/L 08/16/2023 1:12 PM CDT [facility] Anion Gap, P 11 7 - 15 08/16/2023 1:12 PM CDT [facility] BUN (Blood Urea Nitrogen), P 16 6 - 21 mg/dL 08/16/2023 1:12 PM CDT [facility] Creatinine 0.96 0.59 - 1.04 mg/dL 08/16/2023 1:12 PM CDT [facility] Estimated GFR (eGFR) 67 >=60 mL/min/BS A 08/16/2023 1:12 PM CDT CNFL Comment: Estimated GFR calculated using the 2020 CKD_EPI creatinine equation. Calcium, Total, P 9.6 8.8 - 10.2 mg/dL 08/16/2023 1:12 PM CDT [facility] Glucose, P 103 70 - 140 mg/dL 08/16/2023 1:12 PM CDT [facility] Protein, Total, P 8.4(H) 6.3 - 7.9 g/dL 08/16/2023 1:12 PM CDT [facility] Albumin, P 4.7 3.5 - 5.0 g/dL 08/16/2023 1:12 PM CDT [facility] Aspartate Aminotransferase (AST), P 29 8 - 43 U/L 08/16/2023 1:12 PM CDT [facility] Alkaline Phosphatase, P 66 35 - 104 U/L 08/16/2023 1:12 PM CDT CN[facility] Alanine Aminotransferase (ALT), P 36 7 - 45 U/L 08/16/2023 1:12 PM CDT CN[facility] Bilirubin, Total, P 0.2 0.0 - 1.2 mg/dL 08/16/2023 1:12 PM CDT CN[facility] Blood (Blood, Venous) 08/16/2023 12:45 PM CDT 08/16/2023 12:46 PM CDT us Codi Anguiano P.A.-C., P.A., M.S. LAB BLOOD ADD-O N Final Result [facility] [address] [place] [id number], [facility] CNFL [facility] in [address] [address] * (ABNORMAL) Lipid Panel (10/15/2012 10:17 AM CDT) [facility] Signature Cholesterol, Total 233(H) 0 - 200 MGDL POWERCHART Comment: <200 mg/dL Desirable 200-239 mg/dL Borderline High >239 mg/dL High HX HDL 36 35 - 60 MGDL POWERCHART Comment: > 60 mg/dL Desirable 40 60 mg/dL Low Risk <40 mg/dL Undesirable Triglycerides 279(H) 9 - 150 MGDL POWERCHART Comment: <150 mg/dL Desirable 150-199 mg/dL Borderline High 200-499 mg/dL High > 499 Very High Calculated LDL 141(H) 100 - 129 MGDL POWERCHART Total Cholesterol/HDL Ratio 6 POWERCHART Blood 10/15/2012 10:1 7 AM CDT us Ren Kat M.D. LAB BLOOD ADD-ON Final Re sult POWERCHART from Last 3 Months or Most Recently Relevant to Health Maintenance Insurance [employer] Care Teams Business Process Expert Relationship Specialty Start Date End Date Sonya Guevara APRN, C.N.P., D.N.P. PCP - General Family Medicine 12/05/21
--- OUTSIDE RECORDS SUMMARY | 2024-10-09 12:50 | XMS_ITS | Clinical Summary ---
Author Organization [facility] er Address [address] [place] [address] Care Team Providers Care [employer] Name Role Phone Serina Angela APRN Primary Care Provider Allergies No known active allergies Medications rOPINIRole XL (REQUIP XL) 4 MG 24 hr tabletIndicatio ns:Restless Leg Syndrome Take 1 tablet (4 mg total) by mouth every night On file. 90 tablet 3 08/11/2024 6 Active amitriptyline (ELAVIL) 25 MG tabletIndicatio ns:Restless leg syndrome Take 1 tablet (25 mg total) by mouth every night On file. 90 tablet 3 08/11/2024 6 Active gabapentin (NEURONTIN) 600 MG tabletIndicatio ns:Neuropathy TAKE 1 & 1/2 (ONE & ONE-HALF) TABLETS BY MOUTH TWICE DAILY FOR BACK PAIN/NEUROPA THY 270 tablet 1 08/11/2024 Active Active Problems Problem Noted Date Diagnosed Date Ingrown toenail of both feet 09/25/2024 Assessment & Plan (09/25/2024 11:39 AM CDT): Referral placed to [facility] to podiatry Right hip pain 08/11/2024 Assessment & Plan (09/25/2024 11:39 AM CDT): Referral placed to [facility] to orthopedics Assessment & Plan (08/11/2024 10:52 AM CDT): X-ray of right hip ordered Pain, coccyx 08/11/2024 Assessment & Plan (08/11/2024 10:52 AM CDT): X-ray of lumbar spine ordered Visit for annual health examination 08/11/2024 Hyperlipidemia 02/05/2024 Assessment & Plan (02/05/2024 3:03 PM CDT): Lipid abnormalities are improving with treatment. Pharmacotherapy as ordered. Lipids will be reassessed in 6 months. Switch from 20 mg to 10 mg of Atorvastatin a day to see if body aches improve Start Fish Oil 1 tablet 2 x day to see if we can lower triglycerides. If this does not improve, we can try Zetia, Niacin or a Fibrate Neuropathy 02/05/2024 Assessment & Plan (08/11/2024 10:53 AM CDT): Continue on Gabapentin 900 mg 2 x day Assessment & Plan (02/05/2024 3:05 PM CDT): Continue Amitriptyline 25 mg night for Neuropathy Obesity (BMI 30.0-34.9) 02/05/2024 Assessment & Plan (02/05/2024 3:04 PM CDT): Obesity is worsening. Discussed the patient's BMI. The BMI is above average. The patient received dietary education, feeding regime, and exercise education because they have an above normal BMI.. General weight loss/lifestyle modification strategies discussed (elicit support from others; identify saboteurs; non-food rewards, etc). Pharmacotherapy as ordered. Start a healthy diet with high protein, vegetables and sugar free fruits Exercise 30 minutes 5 days a week, include weight lifting Stop Phentermine Start Zepbound 2.5 mg weekly Follow up in 3 months Abdominal bloating 01/17/2024 Assessment & Plan (01/17/2024 1:12 PM CDT): Restart Prilosec 20 mg 2 x day Call [place] [facility] for follow up appointment Referral placed to [facility] Pelvic cramping 11/05/2023 Assessment & Plan (11/05/2023 3:31 PM CDT): Urine dipstick/urine culture ordered Increase bowel movements to 1-2 daily with over the counter medications Increase water intake. Right sided abdominal pain 11/05/2023 Assessment & Plan (01/17/2024 1:12 PM CDT): Restart Prilosec 20 mg 2 x day Call [place] [facility] for follow up appointment Referral placed to [facility] Assessment & Plan (11/05/2023 3:29 PM CDT): Continue using over the counter stool softeners for daily stools Try chiropractor/massage therapy for 4-6 weeks Will consider right hip x-ray if no improvement with daily stools/chiropractic/massage therapy Will do referral for 2nd opinion to [facility] if no improvement in 4-6 weeks. 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 Clayton Assessment & Plan (08/06/2023 3:17 PM CDT): Wear good fitting bra to prevent rubbing of nipple on bra/clothes Swelling of lymph node 08/06/2023 Gastroesophageal reflux disease without esophagi tis 12/31/2022 Restless leg syndrome 12/06/2021 Assessment & Plan (08/11/2024 10:53 AM CDT): Continue on Ropinirole XL (Requip XL) 4 mg daily Continue on Amitriptyline (Elevil) 25 mg daily Assessment & Plan (02/05/2024 3:07 PM CDT): Start Ropinirole XL 4 mg instead of 2 mg Acne rosacea 12/06/2021 Cystocele with rectocele 12/06/2021 Degenerative joint disease of low back 0 Peripheral sensory neuropathy 01/24/2017 Insomnia 09/13/2015 Assessment & Plan (02/05/2024 3:06 PM CDT): Continue Amitriptyline 25 mg night for Neuropathy Resolved Problems Problem Noted Date Diagnosed Date Resolved Date Class 1 obesity in adult 01/04/2020 Assessment & Plan (11/05/2023 3:30 PM CDT): Obesity is worsening. Discussed the patient's BMI. The BMI is above average. The patient received dietary education, feeding regime, and exercise education because they have an above normal BMI.. Pharmacotherapy as ordered. Increase Phentermine from 15 mg to 37.5 mg daily before breakfast Follow up in 3 months Assessment & Plan (08/06/2023 3:14 PM CDT): Obesity is worsening. Discussed the patient's BMI. The BMI is above average. The patient received dietary education, feeding regime, and exercise education because they have an above normal BMI.. Pharmacotherapy as ordered. Start a healthy diet Daily exercise of at least 30 minutes 5 days a week Start taking Phentermine 15 mg daily Follow up in 3-6 months for weight management and medication refills, sooner if any side effects such as chest tightness, heart palpitations or pain. Mixed hyperlipidemia 01/04/2020 024 Encounters Date Type Department Care Team Description 09/25/2024 10:20 AM CDT Office Visit [facility] [address] [place] [address] [place] [address] Serina Angela, ANA Ingrown toenail of both feet (Primary Dx); Right hip pain 09/04/2024 Results Follow-Up [facility] [address] [place] [address] [place] [address] Serina Angela APRN 09/03/2024 9:45 AM CDT - 09/03/2024 11:59 PM CDT Hospital Encounter [facility] [address] [place] [address] [place] [address] Discharge Disposition: Home or Self Care 09/03/2024 9:44 AM CDT Hospital Encounter [facility] [address] [place] [address] [place] [address] Discharge Disposition: Home or Self Care 08/23/2024 Refill [facility] [address] [place] [address] [place] [address] Serina Angela APRN Restless leg syndrome 08/14/2024 10:45 AM CDT Lab [facility] [address] [place] [address] [place] [address] Visit for annual health examination 08/13/2024 Telephone [facility] [address] [place] [address] [place] [address] Serina Angela APRN UTI 08/11/2024 11:00 AM CDT Lab [facility] [address] [place] [address] [place] [address] Screening for diabetes mellitus; Screening for lipid disorders; Pelvic cramping 08/11/2024 10:20 AM CDT Office Visit [facility] [facility] [address] [place] [address] Serina Angela, ACQUISITIONS LOGISTICS ANALYST Visit for annual health examination (Primary Dx); Pain, coccyx; Right hip pain; Neuropathy; Restless leg syndrome; Screening for diabetes mellitus; Screening for lipid disorders 07/20/2024 Refill [facility] [address] [facility] [address] [place] [address] Esteban Akbar MD Neuropathy 07/20/2024 Refill Family Medicine 4th Floor [address] [place] [address] Serina Angela, ACQUISITIONS LOGISTICS ANALYST Neuropathy 07/17/2024 Orders Only [place] [address] [address] Serina Angela, ACQUISITIONS LOGISTICS ANALYST 07/17/2024 Refill [place] [address] [address] Serina Angela, ACQUISITIONS LOGISTICS ANALYST Neuropathy 07/09/2024 Refill [place] [address] [facility] [address] [place] [address] Serina Angela, ACQUISITIONS LOGISTICS ANALYST Neuropathy from Last 3 Months Immunizations Immunization Administration Dates Next Due DTaP 04/10/2004 Influenza, Split Virus, Trivalent, Preservative 03/22/2012 Influenza, Unspecified 03/22/2012 TD Preservative Free 01/04/2020 Tdap 10/04/2005 Family History Medical History Relation Comments Heart attack Father Skin cancer Father Hypertension Mother Lung cancer Mother Resolved 15 year s ago Relation Status Comments Brother Alive Daughter Alive Father Alive Mother Alive Sister Alive Son 1 Alive Son 2 Alive Social History Tobacco Use Types Packs/Day Years Used Date Smoking Tobacco: Former Smokeless Tobacco: Never Tobacco Cessation:Counseling Given: Not Answered Alcohol Use Standard Drinks/Week Comments Not Currently 10 (1 standard drink = 0.6 oz pu re alcohol) B1300 Health Literacy Answer Date Recor ded How often do you need to hav e someone help you when you read instructions, pamphlets, or other written material from your doctor or pharmacy? Never 08/11/2024 [facility] Utilities Answer Date Recorded In the past 12 months has e [employer], [employer], oil, or water [employer] threatened to shut off services in your [...] often do you attend chur ch or mormon services? Never 08/11/2024 Do you belong to any clubs o r organizations such as restorationist groups, unions, fraternal or athletic groups, or [...] Date Recorded PHQ-9 Total Score 0 09/24/2024 [facility] Occupational Stress Questionnaire Answer Date Recorded [...] place to sleep or slept in a prison (including now)? No 08/05/2023 Housing Stability Vital Sign Answer Jose e Recorded In the last 12 months, was t here a time when you were not able to pay the mortgage or rent on time? No 08/11/2024 Number of Times Moved in the Last Year Not on fi le 08/11/2024 At any time in the past 12 m [facility], were you homeless or living in a prison (including now)? No 08/11/2024 Interpersonal Safety Questionnaire Answer Date Recorded How often does anyone, inclu ding family and friends, physically hurt you? Never [...] on file Sexual Orientation Not on file Last Filed Vital Signs Vital Sign Reading [...] 170.8 cm (5' 7.24) 09/25/2024 10:20 AM C DT Body Mass Index 30.52 09/25/2024 10:20 AM CDT Plan of Treatment Health Maintenance Due Date Last Done Comments CT Colonography 1961 FIT-DNA 1961 Sigmoidoscopy 1961 iFOBT 1961 Mammogram 11/17/2024 11/18/2023, 10/21, 08/13/2023, Additional history exists COVID-19 Vaccine (2 - Moderna risk series) 01/20/2025 01/11/2021 Postponed from 02/08/2021 (Patient Preference) Influenza Vaccine (Season Ended) 2025 03/22/2012, 03/22/2012 Postponed from 12/21/2024 (Patient Preference) Pneumococcal Vaccine: 50+ Years (1 of 2 - PCV) 08/11/2025 Postponed from 1980 (Patient Preference) Zoster Vaccines (1 of 2) 08/11/2025 Pos tponed from 1980 (Patient Preference) DTaP,Tdap,and Td Vaccines (4 - Td or Tdap) 01/03/2030 01/04/2020, 10/04/2005, 04/10/2004 Colonoscopy 01/29/2031 12/31/2012 Colorectal Cancer Screening 01/29/2031 Pap Smear Discontinued 01/02/2019 HPV Vaccines Aged Out No longer eligi ble based on patient's age to complete this topic Procedures Procedure Name Priority Date/Time Associated Diagnosis Comments XR LUMBAR SPINE 2-3 VIEWS Routine 09/03/2024 10:05 AM CDT Right hip pain XR HIP 2-3 VIEWS RIGHT WITH PELVIS Today 09/03/2024 10:05 AM CDT Pain, coccyx URINE CULTURE Routine 08/14/2024 10:55 AM CDT Visit for annual health examination ESTIMATED GLOMERULAR FILTRATION RATE (EGFR) Routine 08/11/2024 10:55 AM CDT Screening for diabetes mellitus BASIC METABOLIC PANEL Routine 08/11/2024 10:55 AM CDT Screening for diabetes mellitus CBC BRANCH OFFICE W/DIFF Routine 08/11/2024 10:55 AM CDT Screening for diabetes mellitus LIPID PANEL Routine 08/11/2024 10:55 AM CDT Screening for lipid disorders VITAMIN D, TOTAL Routine 08/11/2024 10:5 5 AM CDT Screening for diabetes mellitus VITAMIN B1, WHOLE BLOOD Routine 08/11/2024 10:55 AM CDT Screening for diabetes mellitus MAMMOGRAM BREAST DIAGNOSTIC TOMOSYNTHESIS RIGHT Routine 08/13/2023 11:30 AM CDT Lump in upper outer quadrant of right breast from Last 3 Months or Most Recently Relevant to Health Maintenance Results * X-ray lumbar spine 2-3 views (Routine) (09/03/2024 10:05 AM CDT) Anatomical Region Laterality Modality Spine, L-spine Computed Radiogr aphy Impressions 09/03/2024 10:07 AM CDT XR LUMBAR SPINE 2-3 VIEWS The distal-most aspect of the coccyx is not completely included. No fracture identified. No malalignment. No suspicious lesion. Bone density overall appears diffusely decreased. There are 6 yec-hkw-hnbgssg lumbar-type vertebral bodies. There is mild disc [...] overall appears diffusely decreased. There are 6 mns-gyo-qvkdsigbjhruv-type vertebral bodies. There is mild disc space narrowing withendplate spurring from L1-2 through L6-S1. There are metallic clips inthe right upper abdomen. Serina Angela APRN IMG XR PROCEDURES Delaney l Result * X-ray hip 2-3 views right with [...] APRN IMG XR PROCEDURES Delaney l Result * Urine culture (08/14/2024 10:55 AM CDT) Urine Culture No Growth 08/15/2024 7:05 AM CDT [facility] Urine (Urine, Clean Catch) 08/14/2024 10:55 AM CDT 08/14/2024 4:30 PM CDT Comment:Urine Culture Serina Angela APRN LAB MICROBIOLOGY - GEN ERAL ORDERABLES Final Result Performing Organization Address [facility] Co de Phone Number [facility] [address] [place] [address] * Estimated Glomerular Filtration Rate (eGFR) (08/11/2024 10:55 AM CDT) Estimated Glomerular Filtration Rate (eGFR) >60 08/11/2024 11:57 AM CDT [facility] Comment: GFR calculated from serum creatinine value Chronic Kidney Disease less than 60 mL/min/1.73 m2 Kidney Failure less than 15 mL/min/1.73 m2 Note: effective 04/18/2022: 2020 CKD-EPI Equation used 08/11/2024 10:5 5 AM CDT 08/11/2024 10:55 AM CDT Serina Angela APRN LAB BLOOD ORDERABLES F inal Result Performing Organization Address [facility]/ZIP Co de Phone Number [facility] [address] [place], [place] [id number] * Vitamin D, Total (08/11/2024 10:55 AM CDT) Vitamin D, Total 61.7 ng/mL 08/13/19 1:48 PM CDT [facility] Comment: Deficient <20 Insufficient 20-<30 Sufficient 30-100 Vitamin D2/D3 fractionation is recommended at the discretion of the clinician if Total Vitamin D is within deficient or insufficient range. Blood (Blood, Venous) 08/11/2024 10:55 AM CDT 08/12/2024 12:38 PM CDT us Serina Angela APRN LAB BLOOD ORDERABLES F inal Result [facility] [address] [place] [address] * CBC Branch Off w/Diff (08/11/2024 10:55 AM CDT) WBC 4.9 3.5 - 10.5 K/uL 08/11/2024 11:01 AM CDT [facility] [place] RBC 4.55 3.90 - 5.00 M/uL 08/11/2024 11:01 AM CDT [facility] [place] Hemoglobin 13.9 12.0 - 15.5 g/dL 08/11/2024 11:01 AM CDT [facility] [place] Hematocrit 42.4 35.0 - 44.0 % 08/11/2024 11:01 AM CDT [facility] [place] Platelets 314 150 - 450 K/uL 08/11/2024 11:01 AM CDT [facility] [place] MCV 93.2 81.6 - 98.3 fL 08/11/2024 11:01 AM CDT [facility] [place] MCH 30.5 26.0 - 32.0 pg 08/11/2024 11:01 AM CDT [facility] [place] MCHC 32.8 32.0 - 36.0 g/dL 08/11/2024 11:01 AM CDT [facility] [place] [place] RDW 11.9 11.9 - 15.5 % 08/11/2024 11:01 AM CDT [facility] Lymphocytes % 24.6 % 08/11/2024 11:01 AM CDT [facility] Mid-size Cells 8.5 % 08/11/2024 11:01 AM CDT [facility] Granulocytes/Benigno trophils 66.9 % 08/11/2024 11:01 AM CDT [facility] Lymphocytes Absolute 1.2 0.9 - 2.9 K/uL 08/11/2024 11:01 AM CDT [facility] MIDS Absolute 0.4 0.4 - 1.5 K/uL 08/11/2024 11:01 AM CDT [facility] Granulocytes/Benigno trophils Absolute 3.3 1.7 - 7.0 K/uL 08/11/2024 11:01 AM CDT [facility] Blood (Blood, Venous) 08/11/2024 10:55 AM CDT 08/11/2024 10:55 AM CDT Serina Angela APRN LAB BLOOD ORDERABLES F inal Result [facility] [address] [place] [address] * (ABNORMAL) Vitamin B1, whole blood (08/11/2024 10:55 AM CDT) Thiamin (Vitamin B1) 202(H) 70 - 180 nmol/L 08/14/2024 10:57 AM CDT [facility] Comment: ADDITIONAL INFORMATION This test was developed and its performance characteristics determined by [facility] in a manner consistent with CLIA requirements. This test has not been cleared or approved by the U.S. Food and Drug Administration. Test Performed by: [facility] [address] [place] [address] Supervisor Plasma: Sury Gorman Ph.D.; CLIA# [id number] Blood (Blood, Venous) 08/11/2024 10:55 AM CDT 08/12/2024 3:07 PM CDT Serina Angela APRN LAB BLOOD ORDERABLES F inal Result Performing Organization Address [facility]/ZIP Co de Phone Number [facility] [address] [place] [address], * (ABNORMAL) Lipid panel (08/11/2024 10:55 AM CDT) Pathologist [facility] Cholesterol 196 0 - 199 mg/dL 08/12/2024 2:09 PM CDT [facility] Comment: Recommended by National Cholesterol Education Program (ATP III) -------- Cholesterol Ranges -------- <200 Desirable 200-239 Borderline high >=240 High Triglycerides 287(H) 0 - 149 mg/dL 08/12/2024 2:09 PM CDT [facility] Comment: -------- TRIG Ranges -------- <150 Normal 150-199 Borderline high 200-499 High >=500 Very high HDL 33(L) 40 - 250 mg/dL 08/12/2024 2:09 PM CDT [facility] Comment: -------- HDL Ranges -------- <40 Low 40-59 Normal >=60 Optimal LDL Calculated 106(H) 0 - 99 mg/dL 08/12/2024 2:09 PM T [facility] Comment: -------- LDL Ranges -------- <100 Optimal 100-129 Near optimal/above optimal 130-159 Borderline high 160-189 High >=190 Very high Fasting? Yes 08/11/2024 10:55 AM CDT [facility] Blood 08/11/2024 10:5 5 AM CDT 08/12/2024 12:38 PM CDT Serina Angela APRN LAB BLOOD ORDERABLES F inal Result [facility] [address] [place] [address] * (ABNORMAL) Basic metabolic panel (08/11/2024 10:55 AM CDT) Sodium 144 135 - 145 mmol/L 08/11/2024 11:57 AM CDT [facility] [place] Potassium 4.6 3.5 - 5.1 mmol/L 08/11/2024 11:57 AM CDT [facility] [place] Chloride 108(H) 98 - 107 mmol/L 08/11/2024 11:57 AM CDT [facility] [place] CO2 29 22 - 29 mmol/L 08/11/2024 11:57 AM CDT [facility] [place] [place] Creatinine 0.9 0.4 - 1.2 mg/dL 08/11/2024 11:57 AM CDT [facility] [place] BUN 12 5 - 25 mg/dL 08/11/2024 11:57 AM CDT [facility] [place] Glucose 104(H) 70 - 100 mg/dL 08/11/2024 11:57 AM CDT [facility] [place] Calcium, Total,S 10.7(H) 8.4 - 10.2 mg/dL 08/11/2024 11:57 AM CDT [facility] [place] Anion Gap 7 4 - 13 08/11/2024 11:57 AM CDT [facility] [place] Comment: The anion gap is calculated with the following formula: AGAP = Na ? (Cl + CO2). Blood 08/11/2024 10:5 5 AM CDT 08/11/2024 10:55 AM CDT us Serina Angela APRN LAB BLOOD ORDERABLES F inal Result [facility] [address] [place] [address] * (ABNORMAL) Mammogram breast diagnostic tomosynthesis right (08/13/2023 11:30 AM CDT) Anatomical Region Laterality Modality Breast Right Mammography 08/13/2023 11:3 0 AM CDT Impressions 08/13/2023 12:34 PM CDT IMPRESSION: Nothing for malignancy. Any decision about palpable abnormality should be based on clinical assessment. Recommend breast MRI for further evaluation of bloody nipple discharge. Patient was notified of these results at the time of exam. ASSESSMENT: BI-RADS 0: Final Overall Assessment: Needs additional imaging evaluation ResultCode BIRADS: 0 Side: R-Right Breast composition: 3-The breasts are heterogeneously dense, which may obscure small masses Recommendation: I-MRI Narrative 08/13/2023 12:34 PM CDT EXAM DESCRIPTION: MAMMOGRAM UNILATERAL RIGHT DIAGNOSTIC DIGITAL WITH JOO; US BREAST LIMITED RIGHT INDICATION: Right Breast Lump; Right breast lump; Right Breast Lump RISK FACTOR: Personal: Post-menopausal patient Family: No family history of breast cancer COMPARISON: No Comparison FINDINGS: Right breast Findings: Mammogram: No mammographic or tomographic evidence of malignancy. Ultrasound: Targeted ultrasound of the right breast was performed by the photo technologist and myself. Mild ductal ectasia retroareolar right breast without filling defect. At 12:00, 3 cm from the nipple there is a band of dense breast tissue which appears to correlate with palpable abnormality. Procedure Note Josr Rousseau MD - 08/13/2023 EXAM DESCRIPTION: MAMMOGRAM UNILATERAL RIGHT DIAGNOSTIC DIGITAL WITH JOO; US BREAST LIMITED RIGHT INDICATION: Right Breast Lump; Right breast lump; Right Breast Lump RISK FACTOR: Personal: Post-menopausal patient Family: No family history of breast cancer COMPARISON: No Comparison FINDINGS: Right breast Findings: Mammogram: No mammographic or tomographic evidence of malignancy. Ultrasound: Targeted ultrasound of the right breast was performed by the photo technologist and myself. Mild ductal ectasia retroareolar right breast without filling defect. At 12:00, 3 cm from the nipple there is a band of dense breast tissue which appears to correlate with palpable abnormality. IMPRESSION: Nothing for malignancy. Any decision about palpable abnormality should be based on clinical assessment. Recommend breast MRI for further evaluation of bloody nipple discharge. Patient was notified of these results at the time of exam. ASSESSMENT: BI-RADS 0: Final Overall Assessment: Needs additional imaging evaluation ResultCode BIRADS: 0 Side: R-Right Breast composition: 3-The breasts are heterogeneously dense, which may obscure small masses Recommendation: I-MRI us Serina Angela APRN IMG BI PROCEDURES Delaney l Result from Last 3 Months or Most Recently Relevant to Health Maintenance Insurance [employer] Care Teams Owner [employer] Relationship Specialty Start Date End Date Serina Angela APRN [address] [place] [id number] PCP - General 02/07/23
--- OUTSIDE RECORDS SUMMARY | 2024-10-09 12:50 | XMS_ITS | Encounter Summary ---
Author Organization [facility] er Address [address] [place] [address] Care Team Providers Care Wind Project Manager Name Role Phone Serina Angela APRN Primary Care Provider Reason for Visit * Reason Comments Med Refill Encounter Details Date Type Department Care Team (Late st Contact Info) Description 12/30/2018 Refill Hardik Carr [address] [place] [address] Selena Roy APRN, JD EDWARDS DEVELOPER [address] [address] Neuropathy Social History Tobacco Use Types Packs/Day Years Used Date Smoking Tobacco: Former Smokeless Tobacco: Never Alcohol Use Standard Drinks/Week Comments Yes 10 (1 standard drink = 0.6 oz pu re alcohol) PHQ-2 Answer Date Recorded PHQ-2 Score 0 12/23/2018 Comments Unknown Sex and Gender Information Value Date Recorded Sex Assigned at Not on file Legal Sex Female 7:51 PM CDT Gender Identity Not on file Sexual Orientation Not on file documented as of this encounter Miscellaneous Notes * Telephone Encounter - Meera Bryson MA - 01/01/2019 11:22 AM CDT Duplicate request documented in this encounter Plan of Treatment Not on file documented as of this encounter Visit Diagnoses Diagnosis Neuropathy Mononeuritis of unspecified site documented in this encounter Care Teams Wind Project Manager Relationship Specialty Start Date End Date Serina Angela, JOB SPOTTER [address] [place] [address] PCP - General 02/07/23 documented as of this encounter
--- OUTSIDE RECORDS SUMMARY | 2024-10-09 12:50 | XMS_ITS | Clinical Summary ---
Author Organization [facility] Address [address] [place] [address] Care Team Providers Care Supervisor Estimator And Drafter Name Role Phone Ki Amin Primary Care Provider Unavailabl e Allergies No known active allergies Medications atorvastatin (LIPITOR) 20 mg tabletIndications:H yperlipidemia, unspecified hyperlipidemia type Take 1 Tablet (20 mg) by mouth once daily. 90 Tablet 3 1 Active amitriptyline (ELAVIL) 50 mg tabletIndications:P eripheral sensory neuropathy Take 0.5 Tablets (25 mg) by mouth at bedtime. 90 tablet. 3 1 Active gabapentin (NEURONTIN) 600 mg tabletIndications:P eripheral sensory neuropathy Take 1.5 Tablets (900 mg) by mouth in the morning and 1.5 Tablets (900 mg) in the evening. 270 Tablet 2 Active Active Problems Problem Noted Date Diagnosed Date Peripheral sensory neuropathy 01/24/2017 Immunizations Immunization Administration Dates Next Due COVID-19 vaccine (Moderna 100mcg/0.5mL) PF, MDV 01/11/2021 DTaP 04/10/2004 Influenza Virus, Unspecified 03/22/2012 Influenza, IIV3 (Age >=3 years) 03/22/2012 Td, Preservative Free (age >= 7 Years) 0 Tdap 10/04/2005 Family History Medical History Relation Name Comments Hyperlipidemia Father Hypertension Father Asthma Mother Hyperlipidemia Mother Hypertension Mother Lung cancer Mother s/p right lobec xochilt Cancer-breast No Family History Cancer-ovarian No Family History Relation Name Status Comments Father Alive Mother Alive Social History Tobacco Use Types Packs/Day Years Used Date Smoking Tobacco: Former Cigarettes 0.5 17 Smokeless Tobacco: Never Tobacco Cessation:Counseling Given: Yes Alcohol Use Standard Drinks/Week Comments Yes 0 (1 standard drink = 0.6 oz pur e alcohol) 2-3 glasses 5xper week PHQ-2 Answer Date Recorded PHQ-2 TOTAL SCORE 0 01/03/2021 Social Connections Answer Date Recorded Frequency of Communication with Friends and Fami ly Not on file 04/22/2021 Financial Resource Strain Answer Date R ecorded Difficulty of Paying Living Expenses Not on file 04/22/2021 Difficulty of Paying Living Expenses Not on file 04/22/2021 Comments No Sex and Gender Information Value Date Recorded Sex Assigned at Not on file Legal 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 Gender Identity Not on file Sexual Orientation Not on file Obstetrics History Para Term AB IAB SAB Ectopic Multiple Livin g Live Births 3 3 3 Date Outcome GA Total Labor Labor//3rd Weight Sex Type Anes PTL Sheila A1 A5 Name Clin Term Term Term Last Filed Vital Signs Vital Sign Reading Time Taken Comments Blood Pressure 129/89 01/03/2021 10:19 AM CDT Pulse 76 01/03/2021 10:19 AM CDT Temperature 36.7 C (98 F) 10/10/2017 10:37 AM CDT Respiratory Rate - - Oxygen Saturation 98% 01/03/2021 10: 19 AM CDT Inhaled Oxygen Concentration - - Weight 87.9 kg (193 lb 12.8 oz) 021 10:19 AM CDT Height 169.4 cm (5' 6.69) 01/03/2021 1 0:19 AM CDT Body Mass Index 30.63 01/03/2021 10:19 AM CDT Plan of Treatment Health Maintenance Due Date Last Done Comments HIV for age 15-65 1976 Pneumococcal series for age 50+ (1 of 1 - PCV) 2011 Zoster (shingles) series for age 50+ (1 of 2) 2011 BMI (ht and wt on same day) for age 18+ 01/03/2022 01/03/2021, 10/10/2017, 01/24/2017 Depression screening for age 12+ 01/03/2022 01/03/2021, 10/10/2017, 10/10/2017 COVID-19 vaccine series ( - season) 2023 01/11/2021 Mammogram for age 45-75 01/10/2024 01/10/20 23, 01/04/2022, 12/29/2020, Additional history exists Influenza Vaccine (Season Ended) 2024 03/22/2012, 03/22/2012 Lipids for age 45-75 01/03/2026 01/03/2021, 01/03/2021, 01/24/2017, Additional history exists Tetanus booster 01/03/2030 01/04/2020, 10/04/2005 Colonoscopy through age 75 01/31/203101/31, 01/31/2021, 01/31/2021 RSV vaccine for adults or (1 - 1-dose 75+ series) 2036 Tdap Completed 10/04/2005 Hepatitis C screening for age 18-79 Completed 01/03/2021 Hepatitis B series for 19+ Aged Out N o longer eligible based on patient's age to complete this topic Procedures Procedure Name Priority Date/Time Associated Diagnosis Comments XR MAMMO BILAT SCREENING Routine 01/09/2023 11:38 AM CDT Visit for screening mammogram COLONOSCOPY SCREENING Routine 01/31/2021 1:15 PM CDT Screening for colon cancer ANTI HCV Routine 01/03/2021 11:18 AM CDT Need for hepatitis C screening test LIPID PANEL W REFLEX MEASURED LDL Routine 01/03/2021 11:18 AM CDT Hyperlipidemia, unspecified hyperlipidemia type from Last 3 Months or Most Recently Relevant to Health Maintenance Results * XR MAMMO BILAT SCREENING (01/09/2023 11:38 AM CDT) Anatomical Region Laterality Modality BREASTS, Breast Left, Breast Right Bilateral Mammography Impressions 01/09/2023 1:51 PM CDT There is no radiographic evidence for malignancy. Recommend annual mammograms. MAMMOGRAM ASSESSMENT: ACR 1 Negative PATIENTS: You will also receive a letter with your examination results in an easy to read format. If you have questions about your results, please contact your referring provider. Narrative 01/09/2023 1:51 PM CDT For Patients: As a result of the Century Cures Act, medical imaging exams and procedure reports are released immediately into your electronic medical record. You may view this report before your referring provider. If you have questions, please contact your health care provider. XR MAMMO BILAT SCREENING [[id number]] CLINICAL HISTORY: This is an asymptomatic 62 y.o. patient. INDICATION FOR EXAM: Mammogram Screening. TECHNIQUE: CC & MLO views were obtained. This study was evaluated with the assistance of Computer-Aided Detection. COMPARISON FILM: Yes 01/04/22 [facility] 12/29/20 [facility] FINDINGS: The breasts have scattered areas of fibroglandular density. There are no dominant masses, suspicious micro calcifications or areas of architectural distortion. us Ki Amin MAMMO Final Result * COLONOSCOPY (01/31/2021 1:30 PM CDT) 01/31/2021 1:30 PM CDT Narrative Transcriptions Jacky Vora MD - 01/31/2021 2:23 PM CDT Patient Name: Anamaria Contreras Procedure Date: 01/31/2021 Gender: Female Date of : 1960 Admit Type: Outpatient Procedure: Colonoscopy Proceduralist: Jacky Vora MD , Dora Bruzek, RN(Nurse) Referring MD: Moira Wallace Indications/Pre-Op Diagnosis: Screening for colorectal malignant neoplasm, Last colonoscopy: April 2010 Medications: Fentanyl 200 micrograms IV, Midazolam 4 mgIV, The level of sedation administered wasmoderate Procedure Description: The patient had risks, benefits and alternatives explained to andgave informed consent. The patient had a stable cardiopulmonary status and judged an adequate candidate for conscious sedation. The [id number]-[id number] was passed through the anus and advanced tothe cecum, identified by appendiceal orifice and ileocecal valve. The colonoscopy was performed without difficulty. The patient toleratedthe procedure well. The quality of the bowel preparation was good. The ileocecal valve, appendiceal orifice, and rectum were photographed. Complications: No immediate complications. Estimated Blood Loss & Specimen: Estimated blood loss: none. Specimen collected - None Findings: The perianal and digital rectal examinations were normal. The entire examined colon appeared normal. Impressions/Post-Op Diagnosis: - The entire examined colon is normal. - No specimens collected. Recommendation: - Patient has a contact number available for emergencies. The signsand symptoms of potential delayed complications were discussed with the patient. Return to normal activities tomorrow. Written discharge instructions were provided to the patient. - Resume previous diet. - Continue present medications. - Repeat colonoscopy in 10 years for screening purposes. - Patient's sedation for a repeat study will require Anesthesia staff assistance. Moderate Sedation: Moderate (conscious) sedation was administered by the endoscopy nurse and supervised by the endoscopist. The following parameters were monitored: oxygen saturation, heart rate, respiratory rate, blood pressure, adequacy of pulmonary ventilation and reponse to care. Please refer to the patient's medical record flowsheets and nursing notes for moderate sedation details. Total physician intraservice time was 21 minutes. Jacky Vora MD 01/31/2021 2:23:21 PM This report has been signed electronically. Note Initiated On: 01/31/2021 1:30 PM Procedure Code(s): --- Professional --- 45124, Colonoscopy, flexible; diagnostic, including collection of specimen(s) bybrushing or washing, when performed (separateprocedure) Diagnosis Code(s): --- Professional --- Z12.11, Encounter for screening formalignant neoplasm of colon CPT copyright 2020 [employer]. All rights reserved. The codes documented in this report are preliminary and upon ash handler reviewmay be revised to meet current compliance requirements. Scope In: 1:59:14 PM Scope Withdrawal Time 0 hours 6 minutes 15 seconds Scope Out: 2:18:12 PM Jacky Vora MD PROCEDURE ORD Final Res ult * (ABNORMAL) LIPID PANEL W REFLEX MEASURED LDL (01/03/2021 11:18 AM CDT) CHOLESTEROL,TOTAL 179 100 - 199 mg/dL 01/03/2021 6:44 PM CDT [facility] TRIGLYCERIDES 405(H) <150 mg/dL 01/03/2021 6:44 PM CDT [facility] HDL CHOLESTEROL 42 >40 mg/dL 6:44 PM CDT [facility] NON-HDL CHOLESTEROL 137 <145 mg/dl 01/03/2021 6:44 PM CDT [facility] CHOL/HDL RATIO 4.26 <4.50 01/03/2021 6:44 PM CDT [facility] LDL CHOLESTEROL 6:44 PM CDT [facility] Comment:Invalid LDL when Tri g >400, reflexed to measured LDL VLDL CHOLESTEROL COMMENT 01/03/2021 6:44 PM CDT [facility] Comment:Unable to calculate VLDL. PROVIDER ORDERED STATUS RANDOM 01/03/2021 6:44 PM CDT [facility] Blood BLOOD SPECIMEN / Unknown Venipuncture / Unknown 01/03/2021 11:18 AM CDT 01/03/2021 11:21 AM CDT Moira DE GUZMAN CHEMISTRY Final Result [facility] [address] [place] [address], [place] * ANTI HCV (01/03/2021 11:18 AM CDT) HEPATITIS C ANTIBODY Non-React traci Non-React traci 01/03/2021 7:04 PM CDT [facility] Comment:Antibodies to HCV no t detected; does not exclude the possibility of exposure to HCV. Blood BLOOD SPECIMEN / Unknown Venipuncture / Unknown 01/03/2021 11:18 AM CDT 01/03/2021 11:21 AM CDT us Moira DE GUZMAN SEND OUTS Final Result [facility] [address] [place] [address], from Last 3 Months or Most Recently Relevant to Health Maintenance Insurance [place] [address] [facility] [id number] [place] [address] Care Teams Supervisor Estimator And Drafter Relationship Specialty Start Date End Date Ki Amin PCP - General Family Practice 04/09/22
--- OUTSIDE RECORDS SUMMARY | 2024-10-09 12:50 | XMS_ITS | Data Portability ---
Author Organization [place] - [facility], [facility] [place] Address [address] [place] [address] Assessment Encounter Date Assessment Date Assessment LastModified by Organization Details LastModified Time 03/30/2024 03/30/2024 patient seen today for right hip pain c/w lumbar radiculopathy . we discussed diagnosis and treatment to include seeing pain management for further management and treatment. hip xray is normal. she will make an appt with pain management. rancho Not available 03/30/2024 15:44:03 Plan of Treatment Reminders Order Date Submit Date Provider Last Modified By Organization Details Last Modified Time Details Appointments None record ed. Lab None record ed. Referral None record ed. Procedures None record ed. Surgeries None record ed. Imaging XR, hip + pelvis , unilat eral, 2 or 3 view 2023 024 [email or web address] [address] [facility], [address], [place], [address], 15:30:29 Medication Orders None record ed. Patient TargetsNo targets recorded. Patient Instructions Encounter Date Encounter Id Patient Instructions Last Modified By Organization Details Last Modified Time 03/30/2024 [id number] schedule with back provider rancho Not available 03/30/2024 15:38:09 Reason for Referral None Reported. Results Created Date Observation Date Name Description Value Unit Range Abnormal Flag Note LastModifiedBy Organization Detail LastModifiedTime 03/30/20 24 03/05/2024 XR, hip + pelvi s, unila teral , 2 or 3 view No observ ation record ed. [email or web address] [facility] [address], [place], [address], 03/31/2024 16:08:10 03/30/20 24 XR, hip + pelvi s, unila teral , 2 or 3 view No observ ation record ed. [email or web address] Cor Cl [facility] [address], [place], [address], 03/30/2024 15:30:29 Result Notes None recorded. Problems Name Problem SNOMED Code Status Onset Date Resolution Date Notes Provider Name and Address Organization Details Recorded Time Lumbar radiculopathy 562577000 Active 2023 [place] [address] [place] [address],[facility] [address], [place], [address], [facility] 15:37:55 Problem Notes None recorded. Medical Equipment None Reported. Allergies No known drug allergies Vitals Date Recorded Body height Body mass index (BMI) Body weight Body temperature Provider Name and Address Organization Details Last Updated DateTime 03/30/2024 172.72 cm 30.4 kg/m2 86086.47 g 98.5 [degF] Francisca Gonzales [facility] 03/30/2024 15:16:10 Social History Question Answer Notes LastModified by Organizat ion Details LastModified Time Tobacco Smoking Status Former Smoker [facility] 03/30/2024 15:16:22 What Is Your Level Of Caffeine Consumption? None [email or web address] Information not available 03/30/2024 When Did You Quit Smoking? 16+yearssinc elastcigaret te [email or web address] Information not available 03/30/2024 Last Dental Exam 10/28/2021 [email or web address] Informat ion not available 03/30/2024 Marital Status [email or web address] Informatio n not available 03/30/2024 Employment Status Part-time [email or web address] Information not available 03/30/2024 Last Day Of Work 02/02/2024 Informat ion not available 03/30/2024 What Was The Date Of Your Most Recent Tobacco Screening? 03/30/2024 [email or web address] Information not available 03/30/2024 Have You Ever Been Counseled For Unhealthy Alcohol Use? Yes [email or web address] Information not available 03/30/2024 Has Tobacco Cessation Counseling Been Provided? Yes [email or web address] Information not available 03/30/2024 On What Date Was Tobacco Cessation Counseling Provided? 03/30/2024 [email or web address] Information not available 03/30/2024 Sex: Unknown Functional Status Question Answer Note LastModified by Organizat ion Details LastModified Time Do you use any illicit or recreational drugs? No [email or web address] Information not available 03/30/2024 Do you or have you ever used any other forms of tobacco or nicotine? No [email or web address] Information not available 03/30/2024 What is your level of alcohol consumption? Moderate [email or web address] Information not available 03/30/2024 Are you currently employed? 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 Family History Relationship Description Onset Age of this Age Resolved Age Notes LastModified by Organization Details LastModified Time Father Myocardial infarction pt. added direct ly (03/29) [email or web address] Not available 03/29/2024 16:40:22 Maternal Grandmother Cerebrovascu lar accident pt. added direct ly (03/29) [email or web address] Not available 03/29/2024 16:41:42 Medical History Condition Response Sleep Apnea Y Gynecological HistoryNo gynecological history recorded. Obstetrics History GPAL:G 0 P 0 0 0 0 Past Encounters Encounter ID Performer Location Encounter Start Date Encounter Closed Date Diagnosis/Indication Diagnosis SNOMED-CT Code Diagnosis ICD10 Code Diagnosis Note [id number] Maritza Aguirre, DO COR [facility] [address] [place] [address] 03/30/2024 14:44:17 03/30/2024 18:22:45 Pain of hip region 51663017 M25.551 Increased body mass index 02324610 E66.3 Patient was educated about healthy weight Lumbar radiculopathy 128 392874 M54.16 Health Concerns Section Related Observation LastModified by Organization Detai ls LastModified Time None Recorded Concern Status LastModified by Organization Details LastModified Time None Recorded Advance Directives Directive None Recorded Payers Insurance Date Sequence Insurance Name Policy Number Policy Yip Covered Member ID Yip Member ID Guarantor Name 03/30/2024 Janice Contreras [id number] Anamaria Contreras 03/30/[address] [facility] (O) Anamaria Contreras [id number] Anamaria Contreras Notes Date Note Type Note Provider Name and Address Organization Details Recorded Time 03/30/2024 text/html Patient QuestionsReported bypatient.What is the main reason we are seeing you today?pain Which body parts are primarily affected?hip - right Approximately how long ago did the problem start?months How did the problem begin?no specific incident or unknown Which best describes the recent course of you symptoms?worsening Have you had any prior nonsurgical treatment for this problem?OTC medications - helped a little; injection - helped a little (02/2024 Cortisone) Have you had any prior testing for this problem?x-rays Have you had any prior surgery for this problem?no Were you seen in an emergency room or urgent care?noHipReported bypatient.Pain level:right hip - 09/29 Location:nonspecific Timing:constant; related to activity Quality:aching; throbbing Alleviating factors:rest patient here today for right hip pain since 01/2024. she has pain to posterior lateral side intermittently worse with walking, standing. no groin. no radiation of pain. she does have lower back pain. she was seen in and got IM cortisone injection into buttocks which helped 1wk. no paresthesia. Maritza Aguirre, [address] [place] [address],[address], [place], [address], [facility] - [facility] 03/30/2024 15:44:22 OBGyn Episode No OBEpisode recorded.
--- OUTSIDE RECORDS SUMMARY | 2024-10-09 12:50 | XMS_ITS | Encounter Summary ---
Author Organization [facility] er Address [address] [place] [address] Care Team Providers Care Radiologic Electronic Specialist Name Role Phone Serina Angela APRN Primary Care Provider Encounter Details Date Type Department Care Team (Late st Contact Info) Description 05/13/2023 Telephone Y 52 Sleep Medicine [address] [address] Benoit Gifford MD Social History Tobacco Use Types Packs/Day Years Used Date Smoking Tobacco: Former Smokeless Tobacco: Never Alcohol Use Standard Drinks/Week Comments Yes 10 (1 standard drink = 0.6 oz pu re alcohol) PHQ-2 Answer Date Recorded PHQ-9 Total Score 0 12/31/2022 Comments No Sex and Gender Information Value Date Recorded Sex Assigned at Not on file Legal Sex Female 7:51 PM CDT Gender Identity Not on file Sexual Orientation Not on file documented as of this encounter Miscellaneous Notes * Telephone Encounter - Susan James MA - 05/13/2023 2:05 PM CST Order has been faxed N [facility] * Telephone Encounter - Benoit Gifford MD - 05/13/2023 1:45 PM CST I believe I have signed the order if not please let me know N [facility] * Telephone Encounter - Susan James MA - 05/13/2023 11:28 AM CST Just placed order on dr. Gifford Desk N [facility] * Telephone Encounter - Neel Lancaster RN - 05/13/2023 11:[address] Gifford - Patient requesting temporary Prescription. Order pended. Please review and sign and/or advise. Thanks! N YARN DYER * Telephone Encounter - Lindsay Gibson - 05/13/2023 9:25 AM CST Patient called stated she's in [facility] till Spring. She was last seen 2021. She's wondering if provider can give her temporary RX so she can get her supply. She gets it thru [employer]. She said they should be faxing us req today. Please advise. N YARN DYER documented in this encounter Plan of Treatment Not on file documented as of this encounter Visit Diagnoses Not on filedocumented in this encounter Care Teams Radiologic Electronic Specialist Relationship Specialty Start Date End Date Serina Angela APRN [address] [place] [address] PCP - General 02/07/23 documented as of this encounter
--- OUTSIDE RECORDS SUMMARY | 2024-10-09 12:50 | XMS_ITS | Encounter Summary ---
Author Organization [facility] er Address [address] [place] [address] Care Team Providers Care Chief Meter Reader Name Role Phone Serina Angela APRN Primary Care Provider Encounter Details Date Type Department Care Team (Late st Contact Info) Description 09/04/2024 Results Follow-Up Hardik Carr [address] [place] [address] Serina Angela APRN [address] [place] [address] Social History Tobacco Use Types Packs/Day Years [...] from your doctor or pharmacy? Never 08/11/2024 [facility] Utilities Answer Date Recorded In the past 12 months has e [employer], gas, oil, or water [employer] threatened to shut off services in your [...] How often do you attend chur or mormon services? Never 08/11/2024 Do you belong to any clubs o r organizations such as oriental orthodox groups, unions, fraternal or athletic groups, or [...] Date Recorded PHQ-9 Total Score 1 01/17/2024 [facility] - Occupational Stress Questionnaire Answer Date [...] any time in the past 12 m [facility], were you homeless or living in [...] encounter Miscellaneous Notes * Telephone Encounter - Serina Angela APRN - 09/08/2024 10:10 AM CDT Noted documented in this encounter Plan of Treatment Not on file documented as of this encounter Visit Diagnoses Not on filedocumented in this encounter Care Teams Chief Meter Reader Relationship Specialty Start Date End Date Serina Angela, MEDICAL BILLING CODER [address] [place] [address] PCP - General 02/07/23 documented as of this encounter
--- OUTSIDE RECORDS SUMMARY | 2024-10-09 12:50 | XMS_ITS | Encounter Summary ---
Author Organization [facility] er Address [address] [place] [address] Care Team Providers Care Oven Technician Name Role Phone Serina Angela APRN Primary Care Provider Reason for Visit * Reason Comments Med Refill Encounter Details Date Type Department Care Team (Late st Contact Info) Description 01/11/2021 Refill [place] [address] [place] [address] Tomeka Amin MD Hyperlipidemia, unspecified hyperlipidemia type Social History Tobacco Use Types Packs/Day Years Used Date Smoking Tobacco: Former Smokeless Tobacco: Never Alcohol Use Standard Drinks/Week Comments Yes 10 (1 standard drink = 0.6 oz pu re alcohol) PHQ-2 Answer Date Recorded PHQ-9 Total Score 0 08/26/2020 Comments Unknown Sex and Gender Information Value Date Recorded Sex Assigned at Not on file Legal Sex Female 7:51 PM CDT Gender Identity Not on file Sexual Orientation Not on file documented as of this encounter Miscellaneous Notes * Telephone Encounter - Tomeka Amin MD - 01/12/2021 9:53 AM CDT Sly ochoa * Telephone Encounter - Gloria Heard LPN - 01/12/2021 8:26 AM CDT Please cancel request as the patient has established care elsewhere. * Telephone Encounter - Yara Prado MA - 01/11/2021 2:40 PM CDT Last visit in provider department: 08/26/2020 Last visit requested medication was discussed: 01/04/2020- Annual exam Upcoming appointment with provider: None Last Rx: 01/04/2020- 90 with 3 refills Requested Prescriptions Pending Prescriptions Disp Refills ??? atorvastatin (LIPITOR) 20 MG tablet [Pharmacy Med Name: Atorvastatin Calcium 20 MG Oral Tablet]30 tablet 0 Sig: Take 1 tablet by mouth once daily Labs: Lipid panel is outdated Vitals: BP Readings from Last 2 Encounters: 08/26/20 132/88 01/04/20 118/78 Patient is due for an appointment. PSR/Nurse: Please contact patient to assist with scheduling. documented in this encounter Plan of Treatment Not on file documented as of this encounter Visit Diagnoses Diagnosis Hyperlipidemia, unspecified hyperlipidemia type documented in this encounter Care Teams Oven Technician Relationship Specialty Start Date End Date Serina Angela, [place] [employer] SILVERWARE SALESPERSON [address] [place] [id number] PCP - General 02/07/23 documented as of this encounter
--- OUTSIDE RECORDS SUMMARY | 2024-10-09 12:51 | XMS_ITS | Encounter Summary ---
Author Organization [facility] er Address [address] [place] [address] Care Team Providers Care Anchorman Name Role Phone Serina Angela APRN Primary Care Provider Reason for Visit * Reason Onset Date Comments UTI 08/13/2024 Encounter Details Date Type Department Care Team ([facility] st Contact Info) Description 08/13/2024 Telephone [place] [address] [place] [address] Serina Angela APRN [address] [place] [address] UTI Social History Tobacco Use Types Packs/Day Years [...] from your doctor or pharmacy? Never 08/11/2024 [facility] Utilities Answer Date Recorded In the past 12 months has e electric, gas, oil, or water company threatened to shut off services in your [...] How often do you attend chur or quaker services? Never 08/11/2024 Do you belong to any clubs o r organizations such as orthodoxy groups, unions, fraternal or athletic groups, or [...] Date Recorded PHQ-9 Total Score 1 01/17/2024 [facility] [place] of Occupat ional Health - Occupational Stress [...] place to sleep or slept in a senior care (including now)? No 08/05/2023 Housing Stability Vital Sign Answer Jose e Recorded In the last 12 months, was t here a time when you were not able to pay the mortgage or rent on time? No 08/11/2024 Number of Times Moved in the Last Year Not on fi le 08/11/2024 At any time in the past 12 m [facility], were you homeless or living in a senior care (including now)? No 08/11/2024 Interpersonal Safety Questionnaire [...] encounter Miscellaneous Notes * Telephone Encounter - Simran Terry RN - 08/13/2024 4:49 PM CDT Patient notified, will provide urine sample tomorrow as scheduled. * Telephone Encounter - Serina Angela APRN - 08/13/2024 4:36 PM CDT Still have her provide a sample * Telephone Encounter - Rosy Malone RN - 08/13/2024 1:08 PM CDT Patient has a bladder infection. She had appointment with PCP 08/11/24 and she did not have the symptoms at that time (cloudy urine). Patient took medication that she had left over from [place] last night and this morning. It is cefdinir 300 mg BID, and she reports that her symptoms have already improved. She is providing a urine sample on 08/14/24. documented in this encounter Plan of Treatment Not on file documented as of this encounter Visit Diagnoses Not on filedocumented in this encounter Care Teams Anchorman Relationship Specialty Start Date End Date Serina Angela APRN [address] [place] [address] PCP - General 02/07/23 documented as of this encounter
--- OUTSIDE RECORDS SUMMARY | 2024-10-09 12:51 | XMS_ITS | Encounter Summary ---
Author Organization [facility] er Address [address] [place] [address] Care Team Providers Care Derrick Operator Name Role Phone Serina Angela APRN Primary Care Provider Reason for Visit * Reason Comments Med Refill Encounter Details Date Type Department Care Team (Late st Contact Info) Description 08/23/2024 Refill [place] [address] [place] [address] Serina Angela PASTRYCOOK [address] [place] [address] Restless leg syndrome Social History Tobacco Use Types Packs/Day Years [...] from your doctor or pharmacy? Never 08/11/2024 [facility] Utilities Answer Date Recorded In the [...] any clubs o r organizations such as muslim groups, unions, fraternal or athletic groups, or [...] Date Recorded PHQ-9 Total Score 1 01/17/2024 [facility] [place] of Occupat ional Health - Occupational Stress [...] any time in the past 12 m [facility], were you homeless or living in a intermediate (including now)? No 08/11/2024 Interpersonal Safety Questionnaire Answer Date Recorded How often does anyone, yancy roa family and friends, physically hurt you? Never 08/11/2024 How often does anyone, yancy roa family and friends, insult or talk down to you? Never 08/11/2024 How often does anyone, inclu janina family and friends, threaten you with harm? [...] encounter Miscellaneous Notes * Telephone Encounter - Jermaine Jerome RN - 08/26/2024 1:29 PM CDT This medication was already prescribed with refills documented in this encounter Plan of Treatment Not on file documented as of this encounter Visit Diagnoses Diagnosis Restless leg syndrome Restless legs syndrome (RLS) documented in this encounter Care Teams Derrick Operator Relationship Specialty Start Date End Date Serina Angela APRN [address] [place] [id number] PCP - General 02/07/23 documented as of this encounter
--- OUTSIDE RECORDS SUMMARY | 2024-10-09 12:51 | XMS_ITS | Encounter Summary ---
Author Organization [facility] er Address [address] [place] [address] Care Team Providers Care Submarine Operator Name Role Phone Serina Angela APRN Primary Care Provider Reason for Visit * Reason Onset Date Comments Med Refill 07/17/2024 Encounter Details Date Type Department Care Team (Late st Contact Info) Description 07/17/2024 Refill [place] [address] [place] [address] Serina Angela, FERMENTATION ENGINEER [address] [place] [address] Neuropathy Social History Tobacco Use Types Packs/Day Years Used Date Smoking Tobacco: Former Smokeless Tobacco: Never Alcohol Use Standard Drinks/Week Comments Yes 10 (1 standard drink = 0.6 oz pu re alcohol) Social Connection and Isolat ion Panel [NHANES] Answer Date Recorded In a typical week, how many times do you talk on the phone with family, friends, or neighbors? More than three times a week 08/05/2023 How often do you get togethe r with friends or relatives? Twice a week 08/05/2023 How often do you attend chur ch or restorationism services? Never 08/05/2023 Do you belong to any clubs o r organizations such as mu-ism groups, unions, fraternal or athletic groups, or school groups? No 08/05/2023 How often do you attend meet ings of the clubs or organizations you belong to? Never 08/05/2023 Are you , , di vorced, , never , or living with a partner? 08/05/2023 AUDIT-C Answer Date Recorded Q1: How often do you have a drink containing alcohol? 4 or more times a week 08/05/2023 Q2: How many drinks containi ng alcohol do you have on a typical day when you are drinking? 1 or 2 Q3: How often do you have si x or more drinks on one occasion? Never 08/05/2023 Overall Financial Resource Strain (CARDIA) Answe r Date Recorded How hard is it for you to pa y for the very basics like food, housing, medical care, and heating? Not very hard 08/05/2023 PHQ-2 Answer Date Recorded PHQ-9 Total Score 1 01/17/2024 [facility] - Occupational Stress Questionnaire Answer Date Recorded Do you feel stress - tense, restless, nervous, or anxious, or unable to sleep at night because your mind is troubled all the time - these days? To some extent 08/05/2023 Exercise Vital Sign Answer Date Recorde d On average, how many days pe r week do you engage in moderate to strenuous exercise (like a brisk walk)? 0 days 08/05/2023 On average, how many minutes do you engage in exercise at this level? 0 min 08/05/2023 Hunger Vital Sign Answer Date Recorded Within the past 12 months, y ou worried that your food would run out before you got the money to buy more. Never true 08/05/19 24 Within the past 12 months, t he food you bought just didn't last and you didn't have money to get more. Never true 08/05/2023 PRAPARE - Transportation Answer Date Re corded In the past 12 months, has l ack of transportation kept you from medical appointments or from getting medications? No 07/21 In the past 12 months, has l ack of transportation kept you from meetings, work, or from getting things needed for daily living? No 08/05/2023 Housing Stability Vital Sign Answer [...] a long term (including now)? No 08/05/2023 Comments No Sex and Gender Information Value Date Recorded Sex Assigned at Not on file Legal Sex Female 7:51 PM CDT Gender Identity Not on file Sexual Orientation Not on file documented as of this encounter Miscellaneous Notes * Telephone Encounter - Serina Angela APRN - 07/22/2024 8:06 AM CDT RX sent yesterday * Telephone Encounter - Indira Sanchez RN - 07/21/2024 3:14 PM CDT Per pt's [employer] message: The last person I talked to, Dr. Esteban Akbar said I could get another prescription if I made an appointment when I returned from [place], my appointment is on August 11 10 AM. I am out of my Gabapentin. I just talked to [facility] in [facility]. And found out Dr. Akbar only ordered 10 days worth I believe by mistake since I am supposed to take 1 and 1/2 pill twice a day, so a month should have been 90. I received 30. I believe previously my prescription was made for 6 months since we have been wintering in [place] for several years. Please let me know, Anamaria Contreras * Telephone Encounter - Serina Angela APRN - 07/17/2024 2:46 PM CDT She should establish care in [place] for a provider as these medications shouldn't be sent over state lines if its a controlled substance. * Telephone Encounter - Serina Angela APRN - 07/17/2024 2:45 PM CDT She needs to be seen every 3 months for controlled substances. She has not been seen since January * Telephone Encounter - Raissa Sheth, RN - 07/17/2024 2:16 PM CDT Can you take another look at this - It looks like she's supposed to take 3 tablets a day so if 30 tabs were prescribed that would only give her 10 days (so she will be out on Saturday). Her next appointment isn't until 08/11/2024 (unless you are not wanting her to have enough to last until her appt.).To get her to 08/11/2024 she would need 66 tablets and should start on 07/21/2024 (I T'd this up for you, but you can decide what's appropriate). Thanks for double checking! * Telephone Encounter - Serina Angela APRN - 07/17/2024 12:52 PM CDT Already responded too. * Telephone Encounter - Serina Angela APRN - 07/17/2024 12:51 PM CDT This was already sent on 07/10/2024 * Telephone Encounter - Merle Ann LPN - 07/17/2024 11:19 AM CDT Patient calls request refill of gabapentin be sent to [facility] in [place], [place]. She only has 6 pills remaining from the previous rx, as it was only for 30 pills. Upcoming appointment with provider: 08/11/2024 - Med check Last visit in provider department: 02/05/24 Medication discuss Last visit requested medication was discussed: 12/31/22 Neuropathy - gabapentin (Neurontin) 600 MG tablet; Take one and 1/2 tabs twice a day for back pain/neuropathy Last Rx: gabapentin (NEURONTIN) 600 MG tablet 07/10/24 #30 no refills Dx: Neuropathy [G62.9] Requested Prescriptions Pending Prescriptions Disp Refills gabapentin (NEURONTIN) 600 MG tablet 30 tablet 0 Sig: TAKE 1 & 1/2 (ONE & ONE-HALF) TABLETS BY MOUTH TWICE DAILY FOR BACK PAIN/NEUROPATHY Vitals: BP Readings from Last 2 Encounters: 02/05/24 131/76 01/17/24 133/89 Last Controlled Substance Agreement (CSA): 08/06/23 Last Random Urine Drug Screen (RUDS): None found documented in this encounter Plan of Treatment Not on file documented as of this encounter Visit Diagnoses Diagnosis Neuropathy Mononeuritis of unspecified site documented in this encounter Care Teams Submarine Operator Relationship Specialty Start Date End Date Serina Angela APRN [address] [place] [id number] PCP - General 02/07/23 documented as of this encounter
--- NOTE | 2024-10-09 13:00 | CRLHL7_ITS ---
For Patients: As a result of the Century Cures Act, medical imaging exams and procedure reports are released immediately into your electronic medical record. You may view this report before your referring provider. If you have questions, please contact your health care provider. EXAM: MRI OF THE RIGHT HIP, WITHOUT CONTRAST CLINICAL INDICATION: Hip pain. PRIOR SURGERY: None. COMPARISON PLAIN FILMS: None. COMPARISON CROSS-SECTIONAL IMAGING STUDIES: None. TECHNICAL: Axial, sagittal and coronal PDFS small field of view images of the hip. Coronal and axial T1 and PDFS large field of view images of the entire pelvis. FINDINGS: RIGHT HIP: Effusion: No significant joint effusion, synovial hypertrophy or synovitis. Articular Cartilage/Surfaces: Articular surfaces appear smooth without focal chondral defect or subchondral marrow changes. Labrum: Normal. Joint Bodies: None seen. Proximal Femoral Morphology: No significant osseous bump. Femoral head-neck offset is within normal limits. Acetabular Morphology: No focal or global retroversion. No significant overcoverage. AVN: Not present. LEFT HIP: On the large field of view images of the entire pelvis, the contralateral hip joint is maintained. OSSEOUS STRUCTURES: No fracture, marrow edema or marrow replacement process. MUSCULOTENDINOUS STRUCTURES AND BURSAE: Tendons and visualized musculotendinous units are intact. No muscle atrophy, or edema to suggest strain changes. No trochanteric or iliopsoas bursitis. INTRAPELVIC CONTENTS: No mass, fluid collection or adenopathy. No inguinal hernia. NEUROVASCULAR STRUCTURES: No abnormality involving the visualized sacral nerve roots or proximal femoral or proximal sciatic nerves. No aneurysmal dilation of the visualized distal aorta or iliac arterial circulation. IMPRESSION: 1. No significant abnormality MRI right hip. Dictated by Keyon Duenas MD @ 10/12/2024 10:05:23 AM (Electronically Signed)
--- OUTSIDE RECORDS SUMMARY | 2024-10-10 00:28 | XMS_ITS | Encounter Summary ---
Author Organization [facility] er Address [address] [place] [address] Care Team Providers Care Welder Pipe Making Name Role Phone Serina Angela APRN Primary Care Provider Reason for Visit * Reason Comments Med Refill Encounter Details Date Type Department Care Team (Late st Contact Info) Description 12/30/2018 Refill [place] [address] [place] [address] Selena Roy APRN, PROFESSOR OF CHEMICAL ENGINEERING [address] [address] Neuropathy Social History Tobacco Use Types Packs/Day [...] site documented in this encounter Care Teams Welder Pipe Making Relationship Specialty Start Date End Date Serina Angela, ELECTRODE CLEANER [address] [place] [address] PCP - General 02/07/23 documented as of this encounter
--- OUTSIDE RECORDS SUMMARY | 2024-10-10 00:28 | XMS_ITS | Encounter Summary ---
Author Organization [facility] er Address [address] [place] [address] Care Team Providers Care Warehouse Record Clerk Name Role Phone Serina Angela APRN Primary Care Provider Encounter Details Date Type Department Care Team (Late st Contact Info) Description 09/04/2024 Results Follow-Up [place] [facility] [address] [facility] [address] [place] [id number] Serina Angela CONVEYOR FEEDER [address] [place] [address] Social History Tobacco Use Types Packs/Day Years [...] from your doctor or pharmacy? Never 08/11/2024 [facility] Utilities Answer Date Recorded In the past 12 months has e [employer], gas, oil, or water [employer] threatened to shut off services in your [...] How often do you attend chur or christianity services? Never 08/11/2024 Do you belong to any clubs o r organizations such as bahai groups, unions, fraternal or athletic groups, or [...] Date Recorded PHQ-9 Total Score 1 01/17/2024 [facility] of Occupat ionca Health - Occupational Stress Questionnaire Answer Date [...] to sleep or slept in a senior living (including now)? No 08/05/2023 Housing Stability Vital Sign Answer Jose e Recorded In the last 12 months, was t here a time when you were not able to pay the mortgage or rent on time? No 08/11/2024 Number of Times Moved in the Last Year Not on fi le 08/11/2024 At any time in the past 12 m [facility], were you homeless or living in a senior living (including now)? No 08/11/2024 Interpersonal Safety Questionnaire [...] on filedocumented in this encounter Care Teams Warehouse Record Clerk Relationship Specialty Start Date End Date Serina Angela, CONVEYOR FEEDER [address] [place] [address] PCP - General 02/07/23 documented as of this encounter
--- OUTSIDE RECORDS SUMMARY | 2024-10-10 00:28 | XMS_ITS | Encounter Summary ---
Author Organization [facility] er Address [address] [place] [address] Care Team Providers Care Psych Assistant Name Role Phone Serina Angela APRN Primary Care Provider Encounter Details Date Type Department Care Team (Late st Contact Info) Description 05/13/2023 Telephone [facility] Sleep Medicine [address] [address] Benoit Gifford MD Social History Tobacco Use [...] 2:05 PM CST Order has been faxed MACHINERY ENGINE MECHANIC * Telephone Encounter - Benoit Gifford MD - 05/13/2023 1:45 PM CST I believe I have signed the order if not please let me know MACHINERY ENGINE MECHANIC * Telephone Encounter - Susan James MA - 05/13/2023 11:28 AM CST Just placed order on dr. Gifford Desk MACHINERY ENGINE MECHANIC * Telephone Encounter - Neel Lancaster RN - 05/13/2023 11:02 AM FARM MACHINERY ENGINE MECHANIC Dr. Gifford - Patient requesting temporary Prescription. Order pended. Please review and sign and/or advise. Thanks! MACHINERY ENGINE MECHANIC * Telephone Encounter - Lindsay Gibson - 05/13/2023 9:25 AM CST Patient called stated she's in [facility] till Spring. She was last seen 2021. She's wondering if provider can give her temporary RX so she can get her supply. She gets it thru [employer]. She said they should be faxing us req today. Please advise. MACHINERY ENGINE MECHANIC documented in this encounter Plan of Treatment Not on file documented as of this encounter Visit Diagnoses Not on filedocumented in this encounter Care Teams Psych Assistant Relationship Specialty Start Date End Date Serina Angela APRN [address] [place] [address] PCP - General 02/07/23 documented as of this encounter
--- OUTSIDE RECORDS SUMMARY | 2024-10-10 00:28 | XMS_ITS | Encounter Summary ---
Author Organization [facility] er Address [address] [place] [address] Care Team Providers Care Estate Agent Name Role Phone Serina Angela APRN Primary Care Provider Reason for Visit * Reason Comments Med Refill Encounter Details Date Type Department Care Team (Late st Contact Info) Description 01/11/2021 Refill [place] [address] [place] [address] Tomeka Amin MD Hyperlipidemia, unspecified hyperlipidemia type [...] type documented in this encounter Care Teams Estate Agent Relationship Specialty Start Date End Date Serina Angela, ANALOG CIRCUIT DESIGNER [address] [place] [address] PCP - General 02/07/23 documented as of this encounter
--- OUTSIDE RECORDS SUMMARY | 2024-10-10 00:28 | XMS_ITS | Clinical Summary ---
Author Organization [facility] Address [address] [place] [id number] Care Team Providers Care Blindstitch Lining Feller Name Role Phone Sonya Guevara APRN, C.N.P., D.N.P. Primary Ca re Provider Unavailable Source Comments Patient records contain information from all sites at [facility]. For routine questions regarding patient records, call [phone] during business hours, M-F 8:00 AM - 5:00 PM Central Time. Record requests for emergency care only can be directed to [phone] at any time.[facility] Allergies No known active allergies Medications * [...] drink = 0.6 oz pu re alcohol) [facility] Utilities Answer Date Recorded In the past 12 months has [employer], gas, oil, or water [employer] threatened to shut off services in your home? No 11/01/2023 Hunger Vital Sign Answer Date Recorded Within the past 12 months, y ou worried that your food would run out before you got the money to buy more. Never true 11/01/19 24 Within the past 12 months, t [...] things needed for daily living? No 11/01/2023 Housing Stability Answer Date Recorded What is your living situation today? I have a [facility] place to live 11/01/2023 Comments No Sex and Gender Information Value Date Recorded Sex Assigned at Female 11/01/2023 11:43 AM CDT Legal Sex Female 3:32 PM TILE PICKER Gender Identity Not on file Sexual Orientation Straight 11/01/2023 11 :43 AM CDT Last Filed Vital Signs Vital Sign Reading Time Taken Comments Blood Pressure 131/84 03/24/2024 11:08 AM [facility] Pulse 74 03/24/2024 11:08 AM [facility] Temperature 36.4 C (97.5 F) 03/24/2024 11:08 AM [facility] Respiratory Rate 16 08/16/2023 2:09 PM CDT Oxygen Saturation 96% 08/16/2023 2:00 PM CDT Inhaled Oxygen Concentration - - Weight 89 kg (196 lb 3.2 oz) 03/24/2024 11:08 AM [facility] Height 169.3 cm (5' 6.65) 03/24/2024 11:08 AM [facility] Body Mass Index 31.05 03/24/2024 11:08 AM MST Plan of Treatment Health Maintenance Due Date [...] this topic Medical Devices Implanted Type Area Traffic Control Operator Device Identifier Shelf Expiration Date Model [...] PROCEDURE RIGHT-Outside Mammogram (09/05/2023 9:10 AM CDT) Derik II - 10/22/2023 10:46 AM CDT This order [...] System IMG BI PROCEDURES Final R esult [facility] NA * (ABNORMAL) Comprehensive Metabolic Panel (08/16/2023 [...] 12:45 PM CDT 08/16/2023 12:46 PM CDT Codi Anguiano P.A.-C., P.A., M.S. LAB BLOOD ADD-O N Final Result Performing Organization Address [facility]/State/[facility] Co de Phone Number [facility] [address] [place] [address], [facility] [place] [address] * (ABNORMAL) Lipid Panel (10/15/2012 10:17 AM CDT) Cholesterol, Total 233(H) 0 - 200 MGDL [...] POWERCHART Blood 10/15/2012 10:1 7 AM CDT Ren Kat M.D. LAB BLOOD ADD-ON Final Re sult POWERCHART from Last 3 Months or Most Recently Relevant to Health Maintenance Insurance [employer] Care Teams Blindstitch Lining Feller Relationship Specialty Start Date End Date Sonya Guevara APRN, C.N.P., D.N.P. PCP - General Family Medicine 12/05/21
--- OUTSIDE RECORDS SUMMARY | 2024-10-10 00:29 | XMS_ITS | Encounter Summary ---
Author Organization [facility] er Address [address] [place] [address] Care Team Providers Care Senior Media Director Name Role Phone Serina Angela APRN Primary Care Provider Reason for Visit * Reason Onset Date Comments Med Refill 07/17/2024 Encounter Details Date Type Department Care Team (Late st Contact Info) Description 07/17/2024 Refill [facility] [place] [address] [place] [address] Serina Angela, ENGINE HEAD REPAIRER [address] [place] [address] Neuropathy Social History Tobacco Use Types Packs/Day [...] often do you attend chur ch or presybeterian services? Never 08/05/2023 Do you belong to any clubs o r organizations such as confucianist groups, unions, fraternal or athletic groups, or [...] Date Recorded PHQ-9 Total Score 1 01/17/2024 [facility] - Occupational Stress Questionnaire Answer Date [...] place to sleep or slept in a fdc (including now)? No 08/05/2023 Comments No Sex [...] - 07/21/2024 3:14 PM CDT Per pt's WIDIPt message: The last person I talked to, Dr. Esteban Akbar said I could get another prescription if I made an appointment when I returned from [place], my appointment is on August 11 10 AM. I am out of my Gabapentin. I just talked to [facility] in [facility]. And found out Dr. Akbar only ordered 10 days worth I believe by mistake since I am supposed to take 1 and 1/2 pill twice a day, so a month should have been 90. I received 30. I believe previously my prescription was made for 6 months since we have been wintering in [place] for several years. Please let me know, Anamaria Contreras * Telephone Encounter - Serina Angela APRN - 07/17/2024 2:46 PM CDT She should establish care in [place] for a provider as these medications shouldn't [...] request refill of gabapentin be sent to [facility] in [place], [place]. She only has 6 pills remaining [...] site documented in this encounter Care Teams Senior Media Director Relationship Specialty Start Date End Date Serina Angela APRN [address] [place] [address] PCP - General 02/07/23 documented as of this encounter
--- OUTSIDE RECORDS SUMMARY | 2024-10-10 00:29 | XMS_ITS | Encounter Summary ---
Author Organization [facility] er Address [address] [place] [address] Care Team Providers Care Divorce Lawyer Name Role Phone Serina Angela APRN Primary Care Provider Reason for Visit * Reason Onset Date Comments UTI 08/13/2024 Encounter Details Date Type Department Care Team ([facility] st Contact Info) Description 08/13/2024 Telephone [facility] [address] [place] [address] Serina Angela APRN [address] [place] [address] UTI Social History Tobacco Use Types Packs/Day [...] from your doctor or pharmacy? Never 08/11/2024 [facility] Utilities Answer Date Recorded In the [...] How often do you attend chur or synagogue services? Never 08/11/2024 Do you belong to any clubs o r organizations such as pentecostalism groups, unions, fraternal or athletic groups, or [...] Date Recorded PHQ-9 Total Score 1 01/17/2024 [facility] [place] of Occupat ional Health - Occupational Stress [...] place to sleep or slept in a [place] health care facility (including now)? No 08/05/2023 Housing Stability Vital Sign Answer Jose e Recorded In the last 12 months, was t here a time when you were not able to pay the mortgage or rent on time? No 08/11/2024 Number of Times Moved in the Last Year Not on fi le 08/11/2024 At any time in the past 12 m [facility], were you homeless or living in a [place] health care facility (including now)? No 08/11/2024 Interpersonal Safety Questionnaire [...] provide a sample * Telephone Encounter - Roys Malone RN - 08/13/2024 1:08 PM CDT Patient has a bladder infection. She had appointment with PCP 08/11/24 and she did not have the symptoms at that time (cloudy urine). Patient took medication that she had left over from [place] last night and this morning. It is cefdinir 300 mg BID, and she reports that her symptoms have already improved. She is providing a urine sample on 08/14/24. documented in this encounter Plan of Treatment Not on file documented as of this encounter Visit Diagnoses Not on filedocumented in this encounter Care Teams Divorce Lawyer Relationship Specialty Start Date End Date Serina Angela APRN [address] [place] [address] PCP - General 02/07/23 documented as of this encounter
--- OUTSIDE RECORDS SUMMARY | 2024-10-10 00:29 | XMS_ITS | Clinical Summary ---
Author Organization [facility] er Address [address] [place] [address] Care Team Providers Care Staff Development Educator Name Role Phone Serina Angela APRN Primary [...] (09/25/2024 11:39 AM CDT): Referral placed to [facility] to podiatry Right hip pain 08/11/2024 Assessment & Plan (09/25/2024 11:39 AM CDT): Referral placed to [facility] to orthopedics Assessment & Plan (08/11/2024 10:52 [...] for follow up appointment Referral placed to [facility] Pelvic cramping 11/05/2023 Assessment & Plan (11/05/2023 3:31 PM CDT): Urine dipstick/urine culture ordered Increase bowel movements to 1-2 daily with over the counter medications Increase water intake. Right sided abdominal pain 11/05/2023 Assessment & Plan (01/17/2024 1:12 PM CDT): Restart Prilosec 20 mg 2 x day Call [place] [facility] for follow up appointment Referral placed to [facility] Assessment & Plan (11/05/2023 3:29 PM CDT): Continue using over the counter stool softeners for daily stools Try chiropractor/massage therapy for 4-6 weeks Will consider right hip x-ray if no improvement with daily stools/chiropractic/massage therapy Will do referral for 2nd opinion to [facility] if no improvement in 4-6 weeks. [...] for follow up appointment Referral placed to [facility] Abdominal pain, RUQ (right upper quadrant) 08/15 Assessment & Plan (08/16/2023 12:06 PM CDT): Referral to [facility] Lump in upper outer quadrant of right [...] 10:20 AM CDT Office Visit [facility] [address] [place] [address] [place] [address] Serina Angela, ANA Ingrown toenail of both feet (Primary Dx); Right hip pain 09/04/2024 Results Follow-Up [facility] [address] [place] [address] [place] [address] Serina Angela APRN 09/03/2024 9:45 AM CDT - 09/03/2024 11:59 PM CDT Hospital Encounter [facility] [address] [place] [address] [place] [address] Discharge Disposition: Home or Self Care 09/03/2024 9:44 AM CDT Hospital Encounter [facility] [address] [place] [address] [place] [address] Discharge Disposition: Home or Self Care 08/23/2024 Refill [facility] [address] [place] [address] [place] [address] Serina Angela APRN Restless leg syndrome 08/14/2024 10:45 AM CDT Lab [facility] [address] [place] [address] [place] [address] Visit for annual health examination 08/13/2024 Telephone [facility] [address] [place] [address] [place] [address] Serina Angela APRN UTI 08/11/2024 11:00 AM CDT Lab [facility] [address] [place] [address] [place] [address] Screening for diabetes mellitus; Screening for lipid disorders; Pelvic cramping 08/11/2024 10:20 AM CDT Office Visit [facility] [address]en[address] [address] Serina Angela, EMERGENCY ROOM PHYSICIAN Visit for annual health examination (Primary Dx); Pain, coccyx; Right hip pain; Neuropathy; Restless leg syndrome; Screening for diabetes mellitus; Screening for lipid disorders 07/20/2024 Refill [place] [address] [facility] [address] [place] [address] Esteban Akbar MD Neuropathy 07/20/2024 Refill Family Medicine 4th Floor [address] [place] [address] Serina Angela APRN Neuropathy 07/17/2024 Orders Only [address] [address] Serina Angela, EMERGENCY ROOM PHYSICIAN 07/17/2024 Refill [place] [address] [place] [address] Serina Angela, EMERGENCY ROOM PHYSICIAN Neuropathy from Last 3 Months Immunizations Immunization [...] doctor or pharmacy? Never 08/11/2024 [facility] Utilities Answer Date Recorded In the past [...] week 08/11/2024 How often do you attend [facility] or jainism services? Never 08/11/2024 Do you belong to any clubs o r organizations such as pentecostal groups, unions, fraternal or athletic groups, or [...] Date Recorded PHQ-9 Total Score 0 09/24/2024 [facility] of Occupat ional Health - Occupational Stress [...] place to sleep or slept in a care home (including now)? No 08/05/2023 Housing Stability Vital Sign Answer Jose e Recorded In the last 12 months, was t here a time when you were not able to pay the mortgage or rent on time? No 08/11/2024 Number of Times Moved in the Last Year Not on fi le 08/11/2024 At any time in the past 12 m [facility], were you homeless or living in a care home (including now)? No 08/11/2024 Interpersonal Safety Questionnaire Answer Date Recorded How often does anyone, yancy roa family and friends, physically hurt you? Never 08/11/2024 How often does anyone, yancy roa family and friends, insult or talk down to you? Never 08/11/2024 How often does anyone, inclu ding family and friends, threaten you with harm? [...] overall appears diffusely decreased. There are 6 ptv-sgd-[id number] lumbar-type vertebral bodies. There is mild disc [...] overall appears diffusely decreased. There are 6 dfh-vxn-ewhjdncoxquzu-type vertebral bodies. There is mild disc space [...] acutefracture. No suspicious lytic or blastic lesion. us Serina Angela APRN IMG XR PROCEDURES Delaney l Result * Urine culture (08/14/2024 10:55 AM CDT) Pathologist [facility] Urine Culture No Growth 08/15/2024 7:05 AM CDT [facility] Urine (Urine, Clean Catch) 08/14/2024 10:55 AM CDT 08/14/2024 4:30 PM CDT Comment:Urine Culture Serina Angela APRN LAB MICROBIOLOGY - GEN ERAL ORDERABLES Final Result Performing Organization Address [facility] de Phone Number [facility] [address] [place] [address] * Estimated Glomerular Filtration Rate (eGFR) (08/11/2024 10:55 AM CDT) [facility] Estimated Glomerular Filtration Rate (eGFR) >60 08/11/2024 11:57 AM CDT [facility] Comment: GFR calculated from serum creatinine value Chronic Kidney Disease less than 60 mL/min/1.73 m2 Kidney Failure less than 15 mL/min/1.73 m2 Note: effective 04/18/2022: 2020 CKD-EPI Equation used 08/11/2024 10:5 5 AM CDT 08/11/2024 10:55 AM CDT Serina Angela APRN LAB BLOOD ORDERABLES F inal Result Performing Organization Address [facility] Co de Phone Number [facility] [address] [place], [place] [id number] * Vitamin D, Total (08/11/2024 10:55 AM CDT) Pathologist [facility] Vitamin D, Total 61.7 ng/mL 08/13/19 1:48 PM CDT [facility] Comment: Deficient <20 Insufficient 20-<30 Sufficient 30-100 Vitamin D2/D3 fractionation is recommended at the discretion of the clinician if Total Vitamin D is within deficient or insufficient range. Blood (Blood, Venous) 08/11/2024 10:55 AM CDT 08/12/2024 12:38 PM CDT us Serina Angela APRN LAB BLOOD ORDERABLES F inal Result [facility] [address] [place] [address] * CBC Branch Off w/Diff (08/11/2024 10:55 AM CDT) WBC 4.9 3.5 - 10.5 K/uL 08/11/2024 11:01 AM CDT [facility] RBC 4.55 3.90 - 5.00 M/uL 08/11/2024 11:01 AM CDT [facility] Hemoglobin 13.9 12.0 - 15.5 g/dL 08/11/2024 11:01 AM CDT [facility] Hematocrit 42.4 35.0 - 44.0 % 08/11/2024 11:01 AM CDT [facility] Platelets 314 150 - 450 K/uL 08/11/2024 11:01 AM CDT [facility] MCV 93.2 81.6 - 98.3 fL 08/11/2024 11:01 AM CDT [facility] MCH 30.5 26.0 - 32.0 pg 08/11/2024 11:01 AM CDT [facility] MCHC 32.8 32.0 - 36.0 g/dL 08/11/2024 11:01 AM CDT [facility] RDW 11.9 11.9 - 15.5 % 08/11/2024 11:01 AM CDT [facility] Lymphocytes % 24.6 % 08/11/2024 11:01 AM CDT [facility] Mid-size Cells 8.5 % 08/11/2024 11:01 AM CDT [facility] Granulocytes/Benigno trophils 66.9 % 08/11/2024 11:01 AM CDT [facility] Lymphocytes Absolute 1.2 0.9 - 2.9 K/uL 08/11/2024 11:01 AM CDT [facility] MIDS Absolute 0.4 0.4 - 1.5 K/uL 08/11/2024 11:01 AM CDT [facility] Granulocytes/Benigno trophils Absolute 3.3 1.7 - 7.0 K/uL 08/11/2024 11:01 AM CDT [facility] Blood (Blood, Venous) 08/11/2024 10:55 AM CDT 08/11/2024 10:55 AM CDT Serina Angela APRN LAB BLOOD ORDERABLES F inal Result [facility] [address] [place] [address] * (ABNORMAL) Vitamin B1, whole blood (08/11/2024 10:55 AM CDT) [facility] Thiamin (Vitamin B1) 202(H) 70 - 180 nmol/L 08/14/2024 10:57 AM CDT [facility] Comment: ADDITIONAL INFORMATION This test was developed and its performance characteristics determined by [facility] in a manner consistent with CLIA requirements. This test has not been cleared or approved by the U.S. Food and Drug Administration. Test Performed by: [facility] [address] [place] [address] Pattern Vault Clerk: Sury Gorman Ph.D.; CLIA# [id number] Blood (Blood, Venous) 08/11/2024 10:55 AM CDT 08/12/2024 3:07 PM CDT us Serina Angela APRN LAB BLOOD ORDERABLES F inal Result [facility] [address] * (ABNORMAL) Lipid panel (08/11/2024 10:55 AM CDT) Cholesterol 196 0 - 199 mg/dL 08/12/2024 2:09 PM CDT [facility] Comment: Recommended by National Cholesterol Education Program (ATP III) -------- Cholesterol Ranges -------- <200 Desirable 200-239 Borderline high >=240 High Triglycerides 287(H) 0 - 149 mg/dL 08/12/2024 2:09 PM T [facility] Comment: -------- TRIG Ranges -------- <150 Normal 150-199 Borderline high 200-499 High >=500 Very high HDL 33(L) 40 - 250 mg/dL 08/12/2024 2:09 PM T [facility] Comment: -------- HDL Ranges -------- <40 Low 40-59 Normal >=60 Optimal LDL Calculated 106(H) 0 - 99 mg/dL 08/12/2024 2:09 PM T [facility] Comment: -------- LDL Ranges -------- <100 Optimal 100-129 Near optimal/above optimal 130-159 Borderline high 160-189 High >=190 Very high Fasting? Yes 08/11/2024 10:55 AM CDT [facility] Blood 08/11/2024 10:5 5 AM CDT 08/12/2024 12:38 PM CDT Serina Angela APRN LAB BLOOD ORDERABLES F inal Result [facility] [address] [place] [id number] * (ABNORMAL) Basic metabolic panel (08/11/2024 10:55 AM CDT) Sodium 144 135 - 145 mmol/L 08/11/2024 11:57 AM CDT [facility] Potassium 4.6 3.5 - 5.1 mmol/L 08/11/2024 11:57 AM CDT [facility] Chloride 108(H) 98 - 107 mmol/L 08/11/2024 11:57 AM CDT [facility] [place] CO2 29 22 - 29 mmol/L 08/11/2024 11:57 AM CDT [facility] Creatinine 0.9 0.4 - 1.2 mg/dL 08/11/2024 11:57 AM CDT [facility] BUN 12 5 - 25 mg/dL 08/11/2024 11:57 AM CDT [facility] Glucose 104(H) 70 - 100 mg/dL 08/11/2024 11:57 AM CDT [facility] Calcium, Total,S 10.7(H) 8.4 - 10.2 mg/dL 08/11/2024 11:57 AM CDT [facility] Anion Gap 7 4 - 13 08/11/2024 11:57 AM CDT [facility] Comment: The anion gap is calculated with the following formula: AGAP = Na ? (Cl + CO2). Blood 08/11/2024 10:5 5 AM CDT 08/11/2024 10:55 AM CDT Serina Angela APRN LAB BLOOD ORDERABLES F inal Result Performing Organization Address City/State/[facility] Co de Phone Number [facility] [address] [place] [address] * (ABNORMAL) Mammogram breast diagnostic tomosynthesis right [...] the right breast was performed by the medical lab technologist and myself. Mild ductal ectasia retroareolar [...] the right breast was performed by the medical lab technologist and myself. Mild ductal ectasia retroareolar [...] Most Recently Relevant to Health Maintenance Insurance [employer] Care Teams Staff Development Educator Relationship Specialty Start Date End Date Serina Angela APRN [address] [place] [id number] PCP - General 02/07/23
--- OUTSIDE RECORDS SUMMARY | 2024-10-10 00:29 | XMS_ITS | Encounter Summary ---
Author Organization [facility] er Address [address] [place] [address] Care Team Providers Care Snowmaker Name Role Phone Serina Angela APRN Primary Care Provider Reason for Visit * Reason Comments Med Refill Encounter Details Date Type Department Care Team (Late st Contact Info) Description 08/23/2024 Refill [facility] [place] [address] [place] [address] Serina Angela CHARGING MACHINE OPERATOR [address] [place] [address] Restless leg syndrome Social History Tobacco Use [...] from your doctor or pharmacy? Never 08/11/[address] [facility] Utilities Answer Date Recorded In the [...] any clubs o r organizations such as restorationism groups, unions, fraternal or athletic groups, or [...] Date Recorded PHQ-9 Total Score 1 01/17/2024 [facility] [place] of Occupat ional Health - Occupational Stress [...] any time in the past 12 m [facility], were you homeless or living in [...] (RLS) documented in this encounter Care Teams Snowmaker Relationship Specialty Start Date End Date Serina Angela APRN [address] [place] [id number] PCP - General 02/07/23 documented as of this encounter
== END 2024-10-09 12:43 | disposition home or self-care (01) ==
PROVIDERS: PCP Nurse Practitioner Family; Visit Provider Nurse Practitioner Family
DX: M25.551 Pain in right hip (principal)
CPT/HCPCS: 73721

== ENCOUNTER 2024-10-22 10:39 | Outpatient (CLI) | payer OTHER, SELFPAY ==
--- NOTE | 2024-10-22 11:00 | CRLHL7_ITS ---
For Patients: As a result of the Century Cures Act, medical imaging exams and procedure reports are released immediately into your electronic medical record. You may view this report before your referring provider. If you have questions, please contact your health care provider. Indication: CHRONIC RUQ PAIN, EVALUATE FOR MESENTERIC PANNICULITIS AND SURG. ADHESIONS, BLOATED Technique: CT Abdomen/Pelvis WITH 101 CC ISOVUE 370 AND ORAL WATER PREP Please note that all CT scans at this facility use dose modulation, iterative reconstruction, and/or weight-based dosing when appropriate to reduce radiation dose to as low as reasonably achievable. Comparison: None Findings: Mild atelectasis/scarring is present within both lung bases. No pleural effusion. Mild focal fat deposition within the liver adjacent to the falciform ligament noted. Benign cysts in the left hepatic lobe measure up to 1.6 cm in total. The gallbladder is absent. No biliary obstruction. The spleen is normal. Normal adrenal glands. The kidneys are within normal limits. Normal pancreas. Normal bladder. No pelvic mass. Normal appendix. No bowel obstruction. Faint inflammatory changes are present about a short segment of the sigmoid colon with associated adjacent sub cm lymph node and mild mural wall thickening. A small bubble of air is located adjacent to the distal duodenum. Ill-defined densities in the central mesenteric fat with small sub cm lymph nodes are noted. No fracture. Mild degenerative changes. Impression: Mild focal mid sigmoid diverticulitis. Recommend correlation with colonoscopy to exclude underlying malignancy. Small bubble of air adjacent to the distal duodenum may reside within a duodenal diverticulum although can not exclude free air. Recommend correlation with any recent surgical procedure. Moderate mesenteric panniculitis. No evidence of small-bowel obstruction. Please note that all CT scans at this facility use dose modulation, iterative reconstruction, and/or weight-based dosing when appropriate to reduce radiation dose to as low as reasonably achievable. Dictated by Alan Bangura MD @ 10/26/2024 12:56:22 PM (Electronically Signed)
[2024-10-22 11:05] LABS: Creatinine* 0.8 mg/dL (0.5-1.5); Estimated Glomerular Filt Rate 83 ml/min
== END 2024-10-22 10:40 | disposition home or self-care (01) ==
LOC: CT 10:39
PROVIDERS: PCP Family Medicine; Visit Provider Family Medicine
DX: R10.11 Right upper quadrant pain (principal); K57.32 Diverticulitis of large intestine without perforation or abscess without bleeding; K65.4 Sclerosing mesenteritis; K66.0 Peritoneal adhesions (postprocedural) (postinfection)
CPT/HCPCS: 36415; 74177; 82565; Q9967